=== PATIENT | female | born 1965 | race Caucasian/White ===

== ENCOUNTER → 2019-10-02 12:22 | Outpatient (CLI) | payer BC, SELFPAY ==
--- NOTE | ~2019-10-02 | MM_ITS ---
EXAMINATION: MM screening raheel BI w santiago HISTORY: Screening mammogram TECHNIQUE: Craniocaudal and mediolateral oblique 3-D tomosynthesis images were obtained and synthetic 2-D images were generated. CAD analysis was submitted and interpreted. COMPARISON: 04/04/2018 bilateral digital screening mammogram BREAST PARENCHYMAL COMPOSITION: The breasts are almost entirely fatty. FINDINGS: There is no evidence of suspicious mass, calcification, or architectural distortion to sugg est malignancy in either breast. There has been no suspicious interval change. IMPRESSION: 1. No mammographic evidence of malignancy. 2. Recommend routine screening mammography in one year. BI-RADS Category 1: Negative Reviewed, dictated and finalized at location A. LINE REPAIRER
== END ==
PROVIDERS: PCP Family Medicine; Visit Provider Family Medicine
DX: Z12.31 Encounter for screening mammogram for malignant neoplasm of breast (principal)
CPT/HCPCS: 77063; 77067

== ENCOUNTER 2020-06-05 09:25 | Emergency (ER) | payer BC, SELFPAY ==
[2020-06-05 09:30] VITALS: BP 130/69; PULSE 95; RESP 20; TEMP 36.6; O2SAT 98
--- NOTE | 2020-06-05 09:30 | ED.WOUNDLAC ---
HPI - Wound/Laceration General Chief Complaint: Wound/Laceration Stated Complaint: cut hand Time Seen by Provider: 06/05/20 09:31 Source: patient Mode of arrival: ambulatory Limitations: no limitations History of Present Illness HPI narrative: 54-year-old woman comes in today complaining of laceration on the back of her right hand. Patient states that she was cleaning a slicer when she was cut just prior to arrival. She denies numbness, tingling or decreased range of motion. Her last tetanus shot was about 4 years ago. Onset (ago): minute(s) (30) Extremity Location: Right: hand Place: work Patient tetanus UTD: Yes Context: accidental Associated symptoms: pain Treatments prior to arrival: bandage Related Data Home Medications Medication Instructions Recorded Confirmed aspirin 81 mg tablet,delayed 81 mg PO DAILY 09/18/19 05/21/20 release Allergies Allergy/AdvReac Type Severity Reaction Status Date / Time vancomycin Allergy Unknown Rash Verified 01/21/20 15:28 Review of Systems Review of Systems: All systems reviewed & are unremarkable except as noted in HPI and below Integumentary/Breasts: Skin/Breast: Denies pruritus, Denies erythema and Denies rash Neurologic: Denies vertigo, Denies dizziness, Denies syncope, Denies focal weakness and Denies numbness Hematologic/Lymphatic: Hematologic/Lymphatic: Denies easy bleeding and Denies easy bruising PMFSH Past Medical History Medical History (Updated 06/05/20 @ 10:07 by Luis A Roa MD) Arthritis of knee Cholelithiasis 06/2009 Dyslipidemia Essential (primary) hypertension Family history of factor V deficiency GERD without esophagitis Rectal prolapse Type 2 diabetes mellitus without complications Unspecified osteoarthritis, unspecified site Surgical History Surgical History (Updated 06/05/20 @ 09:41 by Luis A Roa MD) History of arthroplasty of both knees Left total - 02/10/2016 Right total - 12/29/2015 History of cholecystectomy 04/26/2013 Hx of neck surgery Salivary gland removal Hx of tubal ligation Family History Family History (Updated 09/18/19 @ 15:23 by Siena Bonilla) Father Hypertension Family history of gastrointestinal disorder Family history of chronic obstructive pulmonary disease Malignant neoplasm of prostate Family history of diabetes mellitus in first degree relative Mother Hypertension Other Aneurysm Atrial myxoma Cerebrovascular accident Diabetes mellitus Family history of arthritis Family history of gout Family history of heart disease in male family member before age 55 Family history of primary malignant neoplasm of liver Social History Social History Smoking status: Current every day smoker Tobacco type: cigarettes Second hand tobacco smoke exposure: Yes Alcohol intake: current Substance use: never Substance use type: does not use Exam Const: General: alert Nutritional Appearance: obese Orientation/consciousness: patient oriented x3 Limitations: no limitations Other: [id number] acute distress. HENMT: Head: normal to inspection Face and sinus: normal facial exam Eyes: Conjunctivae: conjunctivae normal Pupils: Equal, round and reactive pupils present EOM: EOMs intact bilaterally Skin: General skin exam: normal color, no jaundice and no pallor Rashes: no rashes Other: 2.5 cm flap laceration on the dorsum of the right hand. Neuro: General: patient oriented x3, moves all extremities and no focal motor deficits Speech: normal speech Gait exam (Neuro): Normal gait present Extrem: General: normal to inspection and no clubbing, cyanosis or edema Other: Extensor tendons of the 2nd digit of the right hand are intact to challenge. Distal neurovascular exam intact. Psych: Appearance: grossly normal and well kempt Mental Status: mental status grossly normal Affect: normal affect Attitud
[2020-06-05] MEDS: LIDOCAINE HCL 1% LOCAL INJ 20 ML VIAL 10 ML INFILTRATE (09:44)
[2020-06-05 10:16] VITALS: BP 130/75; PULSE 71; RESP 20; O2SAT 98
== END 2020-06-05 10:17 | disposition home or self-care (01) ==
PROVIDERS: Emergency Provider Emergency Medicine; PCP Family Medicine
DX: S61.411A Laceration without foreign body of right hand, initial encounter (principal); W45.8XXA Other foreign body or object entering through skin, initial encounter
CPT/HCPCS: 12001; 99282

== ENCOUNTER → 2022-02-02 10:05 | Outpatient (CLI) | payer BC, SELFPAY ==
--- NOTE | ~2022-02-02 | MM_ITS ---
EXAMINATION: MM screening raheel BI w santiago HISTORY: Screening mammogram TECHNIQUE: Craniocaudal and mediolateral oblique 3-D tomosynthesis images were obtained and synthetic 2-D images were generated. CAD analysis was submitted and interpreted. COMPARISON: 10/02/2019, 04/04/2018 bilateral screening mammogram examinations BREAST PARENCHYMAL COMPOSITION: The breasts are almost entirely fatty. FINDINGS: There is no evidence of suspicious mass, calcification, or architectural distortion to sugg est malignancy in either breast. There has been no suspicious interval change. IMPRESSION: 1. No mammographic evidence of malignancy. 2. Recommend routine screening mammography in one year. BI-RADS Category 1: Negative Reviewed, dictated and finalized at location A.
--- NOTE | ~2022-02-02 | DEXA_ITS ---
Bone Density Report Name: ALAN GARCIA Age: 56 Sex: Female Ethnicity: White Date of : 1965 Indication: postmenopausal; screening for osteoporosis; height loss; Referring Provider: Fran Finely Study: Bone densitometry was performed. Exam Date: February 02, 2022 Accession number: [id number] Bone Density: Region BMD T-score Z-score Classification AP Spine (L1-L4) 1.113 0.6 1.9 Normal Femoral Neck (Left) 0.799 -0.5 0.8 Normal Total Hip (Left) 0.968 0.2 1.1 Normal Femoral Neck (Right) 0.903 0.5 1.7 Normal Total Hip (Right) 0.894 -0.4 0.5 Normal Total Hip Mean 0.931 -0.1 0.8 Normal World Health Organization criteria for BMD impression classify patients as: Normal (T-score at or above -1.0), Osteopenia (T-score between -1.0 and -2.5), or Osteoporosis (T-score at or below -2.5). 10-year Fracture Risk: FRAX not reported because: All T-scores for Spine Total, Hip Total, Femoral Neck at or above -1.0 Clinical Information Provided by Patient: Smokes Has used the following medications: Vitamin D Patient maximum height was 66 Menopause Age: 38 No regular weight bearing exercise Drinks caffeinated beverages Onset of menses at age 10 Number of children 3 Impression: The patient has normal bone mass. The patient has risk factors, including: smoking. Discussion: BONE DENSITY IS ABOVE THE MINIMUM DESIRABLE LEVEL AT ALL SKELETAL SITES TESTED. This patient?s bone mineral density is above the minimum desirable level (T-score -1.0 or better) at all sites measured. The patient should follow a healthful lifestyle (good nutrition with adequate calcium and vitamin D, and appropriate weight-bearing exercise). Follow-Up: Consider repeating this study in 5 years or sooner if there is some new clinical indication. Reported by: REJI on 02/02/2022 10:33:00 AM. Reviewed, dictated and finalized at location ARicardo GOODWIN
== END ==
PROVIDERS: PCP Family Medicine; Visit Provider Family Medicine
DX: Z12.31 Encounter for screening mammogram for malignant neoplasm of breast (principal); Z78.0 Asymptomatic menopausal state
CPT/HCPCS: 77063; 77067; 77080

== ENCOUNTER 2023-06-07 12:35 | Outpatient (CLI) | payer OTHER, SELFPAY ==
[2023-06-07 19:26] LABS: Creatinine Urine 79.5 mg/dL
[2023-06-07 19:29] LABS: Vitamin D 25 Hydroxy 35.8 ng/mL
[2023-06-07 19:31] LABS: Alanine Aminotransferase 24 U/L (6-35); Albumin Level 4.2 g/dL (3.5-5.1); Alkaline Phosphatase 69 U/L (38-126); Anion Gap 7 mmol/L (8-16); Aspartate Amino Transferase 31 U/L (14-36); Bilirubin,Total 0.5 mg/dL (0.2-1.3); Blood Urea Nitrogen 24 mg/dL (7-17); Carbon Dioxide 30 mmol/L (22-30); Chloride 103 mmol/L (98-107); Cholesterol 163 mg/dL (0-200); Estimated Glomerular Filt Rate 31; Glucose 95 mg/dL (65-110); HDL Direct 35 mg/dL; Potassium 4.6 mmol/L (3.4-5.0); Sodium 140 mmol/L (137-145); Triglycerides 157 mg/dL (<150)
[2023-06-07 19:36] LABS: MALB Creatinine Ratio 7.7 mg/g (0-30); Microalbumin Urine Random 6.1 mg/L (0-16.7)
[2023-06-07 19:42] LABS: Basophils Absolute Auto 0.1 K/mm3 (0.0-0.1); Eosinophils Absolute Auto 0.5 K/mm3 (0-0.3); Eosinophils Percent Auto 4.7 % (0-4.4); Hematocrit 39.9 % (37.0-47.0); Hemoglobin 12.7 g/dL (12.0-15.0); Immature Granulocyte Absolute 0.06 K/mm3 (0.00-0.031); Immature Granulocyte Percent A 0.5 % (0-0.5); Lymphocytes Absolute Auto 3.96 K/mm3 (0.9-3.2); Mean Corpuscular HGB Conc 31.8 g/dl (32-36); Mean Corpuscular Hemoglobin 30.8 pg (26-34); Mean Corpuscular Volume 96.8 fl (80-100); Mean Platelet Volume 10.3 fl (7.4-10.4); Monocytes Absolute Auto 0.7 K/mm3 (0.1-0.6); Monocytes Percent Auto 6.5 % (2.6-8.5); Neutrophils Absolute Auto 5.6 K/mm3 (1.3-6.7); Neutrophils Percent Auto 51.3 % (45.5-73.1); Platelet Count Result 297 k/mm3 (150-375); Red Blood Count 4.12 M/mm3 (4.2-5.4)
[2023-06-07 19:47] LABS: Hemoglobin A1C 6.9 % (<5.7)
[2023-06-07 19:57] LABS: LDL Cholesterol Direct 96 mg/dL
== END 2023-06-07 12:36 | disposition home or self-care (01) ==
LOC: ANHGOSHLAB 12:38
PROVIDERS: PCP Family Medicine; Visit Provider Nurse Practitioner Family
DX: E55.9 Vitamin D deficiency, unspecified (principal); Z13.1 Encounter for screening for diabetes mellitus; I10 Essential (primary) hypertension; Z13.29 Encounter for screening for other suspected endocrine disorder; Z13.220 Encounter for screening for lipoid disorders; E11.9 Type 2 diabetes mellitus without complications; Z00.00 Encounter for general adult medical examination without abnormal findings
CPT/HCPCS: 36415; 80053; 80061; 82043; 82306; 83036; 84443; 85025

== ENCOUNTER 2023-09-10 17:15 | Emergency (ER) | payer OTHER, SELFPAY ==
--- NOTE | ~2023-09-10 | XR_ITS ---
EXAMINATION: XR femur RT min 2V INDICATION: Right femur pain TECHNIQUE: Two views of the right femur are obtained on four radiographs. COMPARISON: None available FINDINGS: Bone alignment is normal. There is no fracture. There are changes of right knee arthroplast y. IMPRESSION: 1. No acute osseous abnormality. Reviewed, dictated and finalized at location F. D BANK ATTENDANT
--- NOTE | ~2023-09-10 | XR_ITS ---
EXAMINATION: XR knee LT min 4V DATE: 09/10/2023 18:46 INDICATION: Left knee pain TECHNIQUE: Four views of the left knee were obtained. COMPARISON: 04/25/2016 FINDINGS: There are changes of left knee arthroplasty. An oblique lucency is seen in the cranial aspe ct of the patella which appears to be well-corticated. There is a small knee joint effusion. Soft ti ssues are unremarkable. IMPRESSION: 1. No definite acute osseous abnormality identified. Oblique lucency in the cranial aspect of the pat jason appears to have corticated margins, likely a chronic finding. In addition, no significant overly ing soft tissue swelling is identified. Reviewed, dictated and finalized at location F. CHOOL ASSISTANT TEACHER IMPRESSION: 1. No definite acute osseous abnormality identified. Oblique lucency in the target aircraft technician nial aspect of the patella appears to have corticated margins, likely a chronic finding. In addition, no significant overlying soft tissue swelling is identif ied.
--- NOTE | ~2023-09-10 | XR_ITS ---
EXAMINATION: XR ankle LT min 3V DATE: 09/10/2023 18:49 INDICATION: Left ankle pain TECHNIQUE: Anteroposterior, lateral, and mortise views of the ankle were obtained. COMPARISON: None. FINDINGS: Bone alignment is normal. There is no fracture. There is soft tissue swelling of ankle. Pos terior and plantar calcaneal enthesophytes are noted. There is mild osteoarthritis of the midfoot. IMPRESSION: 1. No acute osseous abnormality. Reviewed, dictated and finalized at location F. ROOM SUPERVISOR
--- NOTE | ~2023-09-10 | XR_ITS ---
EXAMINATION: XR pelvis 1-2V INDICATION: Pelvic pain TECHNIQUE: AP view the pelvis is obtained. COMPARISON: None available FINDINGS: Bone alignment is normal. There is no fracture. Calcified atherosclerosis is noted. There i s at least moderate lower lumbar spondylosis. IMPRESSION: 1. No acute osseous abnormality. Reviewed, dictated and finalized at location F. ESSOR OF ANTHROPOLOGY
--- NOTE | ~2023-09-10 | XR_ITS ---
EXAMINATION: XR tibia fibula RT 2V INDICATION: Right leg pain, initial encounter TECHNIQUE: Two views of the right tibia and fibula are obtained on four radiographs. COMPARISON: None available FINDINGS: There is an acute, traumatic, closed, oblique fracture of the distal tibia which ends above the level of the tibial plafond. There is one cortical width of lateral displacement of the distal f racture fragment. Soft tissue swelling is seen near the fracture. No additional acute osseous abnorma lity is identified. There are changes of right knee arthroplasty. A plantar calcaneal enthesophyte is noted. IMPRESSION: 1. Acute, oblique fracture of the distal fibula. Reviewed, dictated and finalized at location F. AND GAS FIELD TECHNICIAN
--- NOTE | 2023-09-10 17:17 | ED.FALL ---
HPI - Fall General Chief Complaint: Fall Stated Complaint: fall Time Seen by Provider: 09/10/23 17:16 Source: patient Mode of arrival: ambulatory Limitations: no limitations History of Present Illness HPI Narrative: patient is a 57-year-old female with a fall ground level prior to arrival. She was sitting on the bleachers and bent forward and landed on her knees and twisted both ankles. Most of the pain is of the right distal tib-fib. He has chronic right hip pain. The pain on the right hip is worse however this evening. MD complaint: fall Onset (ago): minute(s) (30) Fall from: chair Fall witnessed: yes, by family Place fall occurred: school ( [employer] ble[employer]) Loss of consciousness: none Prolonged down time: no Symptoms prior to fall: none Context: tripped/slipped Location of injury: other ( both knees and both ankles and right hip) Location of injury - extremities: Right: thigh and lower leg and Bilateral: knee and ankle Severity: severe Severity scale (1-10): 9 Quality: sharp, stabbing, aching and throbbing Associated symptoms (after fall): lightheaded ( due to pain only and not prior to event /fall) and other ( nausea secondary to pain and lightheaded secondary to pain) Related Data Home Medications Medication Instructions Recorded Confirmed aspirin 81 mg tablet,delayed 81 mg PO DAILY 09/18/19 09/10/23 release (Adult Low Dose Aspirin) Allergies Allergy/AdvReac Type Severity Reaction Status Date / Time vancomycin Allergy Unknown Rash Verified 09/10/23 17:25 Review of Systems Review of Systems: All systems reviewed & are unremarkable except as noted in HPI and below Constitutional: Constitutional: Reports no additional constitutional complaints Eyes: Eyes: Reports no additional eye complaints ENT: Reports system reviewed and no additional complaints, except as documented Cardiovascular: Cardiovascular: Reports no additional cardiovascular complaints Respiratory: Respiratory: Reports no additional respiratory complaints Gastrointestinal: Gastrointestinal: Reports no additional gastrointestinal complaints Genitourinary: Genitourinary: Reports no additional female genitourinary complaints Musculoskeletal: Musculoskeletal: Reports no additional musculoskeletal complaints Integumentary/Breasts: Skin/Breast: Reports system reviewed and no additional complaints, except as docu Neurologic: Reports system reviewed and no additional complaints, except as documented Psychiatric: Psychiatric: Reports no additional psychiatric complaints Endocrine: Endocrine: Reports no additional endocrine complaints Hematologic/Lymphatic: Hematologic/Lymphatic: Reports no additional hematologic/lymphatic complaints Allergic/Immunologic: Allergic/Immunologic: Reports no additional allergic/immunologic complaints PMFSH Past Medical History Medical History Anxiety Arthritis of knee Cholelithiasis 06/2009 CKD (chronic kidney disease) stage 3, GFR 30-59 ml/min Dyslipidemia Essential (primary) hypertension GERD without esophagitis Type 2 diabetes mellitus without complications Unspecified osteoarthritis, unspecified site Surgical History Surgical History History of arthroplasty of both knees Left total - 02/10/2016 Right total - 12/29/2015 History of cholecystectomy 04/26/2013 Hx of neck surgery (Unknown) Salivary gland removal Hx of tubal ligation (~1986) Family History Family History Father Hypertension Family history of gastrointestinal disorder Family history of chronic obstructive pulmonary disease Malignant neoplasm of prostate Family history of diabetes mellitus in first degree relative Mother Hypertension Other Aneurysm Atrial myxoma Cerebrovascular accident Diabetes mellitus Family history of arthri
[2023-09-10 17:19] VITALS: BP 113/79; PULSE 97; RESP 20; TEMP 36.6; O2SAT 100
[2023-09-10] MEDS: ONDANSETRON HCL ODT 4 MG TABLET PO (17:51)
[2023-09-10] MEDS: MORPHINE SULFATE (*CRX) 2 MG/ML INJ IM (17:52)
[2023-09-10] MEDS: oxyCODONE/ACETAMINOPHEN (*CRX) 5-325 MG TABLET 1 TABLET PO (19:39)
[2023-09-10] MEDS: KETOROLAC (*BKC) 60 MG/2 ML VIAL IM (20:06)
== END 2023-09-10 20:10 | disposition home or self-care (01) ==
PROVIDERS: Emergency Provider Emergency Medicine; PCP Family Medicine
DX: S82.831A Other fracture of upper and lower end of right fibula, initial encounter for closed fracture (principal); I12.9 Hypertensive chronic kidney disease with stage 1 through stage 4 chronic kidney disease, or unspecified chronic kidney disease; E11.22 Type 2 diabetes mellitus with diabetic chronic kidney disease; N18.30 Chronic kidney disease, stage 3 unspecified; E78.5 Hyperlipidemia, unspecified; Z87.891 Personal history of nicotine dependence; W17.89XA Other fall from one level to another, initial encounter; Y92.219 Unspecified school as the place of occurrence of the external cause
CPT/HCPCS: 29515; 72170; 73552; 73564; 73590; 73610; 96372; 99284; A9270; J1885; J2270

== ENCOUNTER 2023-09-20 01:16 | Day surgery (SDC) | payer OTHER, SELFPAY ==
[2023-09-15 14:34] VITALS: BMI 48.2
--- NOTE | 2023-09-15 14:47 | PC.NURSE ---
Report to the Outpatient Waiting Room, entrance under the green pavilion located off [facility], at time 1300 on date 09/20/23. Planned Procedure Time: 1500. Time changes happen often and if your time is changed the preop area will call you the afternoon before. - You and your visitor will be asked to self-screen and do not enter if you have any COVID symptoms. - A mask is optional within the hospital at this time. Patients may have clear liquids (water, carbonated beverages, clear teas, apple juice) until 3 hours prior to surgery with a maximum of 20 ounces. - No food from midnight until time of surgery Take the following medications with a SIP of water the morning of surgery: BUPROPION, ESCITALOPRAM, GABAPENTIN, PAIN PILL IF NEEDED DO NOT STOP ANY OF YOUR OTHER PRESCRIPTION MEDICATIONS PRIOR TO SURGERY ?EXCEPT THE FOLLOWING Medications to discontinue per physician: ASPIRIN Date to take last dose: PT HAS ALREADY STOPPED Please no make-up, nail belarusian, hairspray, perfume, deodorant, or body powder the day of surgery. No jewelry (including any body piercings) or valuables the day of surgery, leave them at home. Please take a shower or bath the night before, or the morning of, surgery with an antibacterial soap. Wear comfortable, loose fitting clothing. - Jewelry must be removed prior to entering the operating room. Rings and piercings that are not removed may be cut off. - The hospital will not accept responsibility for valuables. - Please leave all valuables, including medications, at home the day of surgery. If you are going home after surgery, a licensed tractor trailer moving van driver must drive you home. - NO public transportation without another adult if you receive anesthesia. - We recommend that an adult stay with you for 24 hours following discharge. - We also recommend that you do not drive, make important decision, drink alcoholic beverages, or take any drugs that were not prescribed by your health care provider for at least 24 hours after your discharge time. Follow any additional instructions given to you from your surgeon. If you or anyone in your household have experienced Covid symptoms in the past week, please notify your surgeon or the nurse liaison at the phone number below for possible testing. Telephone instructions given to PT - ALAN GARCIA and asked if any additional questions and then verbalized understanding. Patient advised to call surgeon office or pre surgery nurse liaison [phone] if any additional questions.
[2023-09-20] VITALS (10 sets, daily range): BP systolic 104–151; BP diastolic 71–99; PULSE 76–89; RESP 11–16; TEMP 36.3–36.5; O2SAT 93–99
--- NOTE | ~2023-09-20 | XR_ITS ---
EXAMINATION: XR surgery orthopedic DATE: 09/20/2023 14:10 INDICATION: Distal right fibula fracture. TECHNIQUE: 6 intraoperative fluoroscopic views of right ankle were obtained. I was not present. Fluor oscopy exposure time was 10 minutes 16 seconds. COMPARISON: Right ankle radiographs 09/15/23 FINDINGS: There is an oblique fracture of distal fibula with medial aspect of the fracture line 6 mm proximal to the level of the tibial plafond. The distal fracture fragment demonstrates 2 mm posterola teral displacement. Internal fixation is seen with retrograde intramedullary linsey and 2 distal interlo cking screws. There is a tension band involving the distal tibia and fibula. IMPRESSION: 1. Oblique fracture of distal fibula status post internal fixation. 2. Tibiofibular syndesmosis fixation. Reviewed, dictated and finalized at location E. LATORY CONSULTANT
--- NOTE | 2023-09-20 07:21 | WPDHPUPDATE1 ---
History and Physical Update Update Date/Time: 09/20/23 07:21 History and Physical has been reviewed, including an updated exam of the patient. There are NO changes in the patient's condition. Risks, benefits, and alternatives have been discussed and questions answered. Patient agrees to proceed with procedure.
--- NOTE | 2023-09-20 07:54 | WPDANESEPPF ---
Anes - Initial Pre Proc Eval Procedure: Operation Date: 09/20/23 13:30 Proposed Procedures p Open Reduction Internal Fixation of Right Ankle (Fibula) Fracture - Alex Bell MD Date/Time: 09/20/23 07:54 Surgeon: Alex Bell MD Pre Op Diagnosis: right distal fibula fracture Patient Data Age: 57 Gender: F Height: 1.65 m Weight: 131.6 kg Allergies Allergy/AdvReac Type Severity Reaction Status Date / Time vancomycin Allergy Severe Rash Verified 09/20/23 11:29 Home Medications Medication Instructions Recorded Confirmed Type aspirin 81 mg tablet,delayed 81 mg PO DAILY 09/18/19 09/20/23 History release (Adult Low Dose Aspirin) esomeprazole magnesium 20 mg 20 mg PO DAILY #90 caps 11/01/21 09/20/23 Rx capsule,delayed release (Nexium 24HR) glipizide 10 mg tablet, extended 10 mg PO DAILY #90 tabs 06/02/23 09/20/23 Rx release 24 hr lisinopril 20 1 tablet PO BID #180 tabs 06/06/23 09/20/23 Rx mg-hydrochlorothiazide 12.5 mg tablet escitalopram oxalate 10 mg tablet 10 mg PO DAILY #90 tabs 07/26/23 09/20/23 Rx (Lexapro) gabapentin 300 mg capsule 300 mg PO TID #270 caps 09/01/23 09/20/23 Rx atorvastatin 10 mg tablet 10 mg PO QHS #90 tabs 09/05/23 09/20/23 Rx dulaglutide 0.75 mg/0.5 mL 0.75 mg (0.5 mL) subcut WEEKLY #2 09/11/23 09/20/23 Rx subcutaneous pen injector mL (Trulicity) bupropion HCl 150 mg tablet,12 hr 150 mg PO BID #180 tabs 09/12/23 09/20/23 Rx sustained-release (Wellbutrin SR) hydrocodone 5 mg-acetaminophen 325 1 tablet PO Q8H PRN pain #30 tabs 09/15/23 09/20/23 Rx mg tablet Patient hx anesthesia problems: none Family hx anesthesia problems: none Results Review: All pre-operative results and documents have been reviewed as part of the pre-operative evaluation. [facility] Past Medical History Medical History Anxiety Arthritis of knee Cholelithiasis 06/2009 CKD (chronic kidney disease) stage 3, GFR 30-59 ml/min Dyslipidemia Essential (primary) hypertension GERD without esophagitis Type 2 diabetes mellitus without complications Unspecified osteoarthritis, unspecified site Surgical History Surgical History History of arthroplasty of both knees Left total - 02/10/2016 Right total - 12/29/2015 History of cholecystectomy 04/26/2013 Hx of neck surgery (Unknown) Salivary gland removal Hx of tubal ligation (~1986) Family History Family History Father Hypertension Family history of gastrointestinal disorder Family history of chronic obstructive pulmonary disease Malignant neoplasm of prostate Family history of diabetes mellitus in first degree relative Mother Hypertension Other Aneurysm Atrial myxoma Cerebrovascular accident Diabetes mellitus Family history of arthritis Family history of gout Family history of heart disease in male family member before age 55 Family history of primary malignant neoplasm of liver Social History Social History Social History: Caffeine- daily Smoking packs per day: 0.5 Smoking cigarettes per day: 10.0 Years smoked: 20 Smoking pack-years: 10.00 Smoking status: Former smoker Tobacco type: cigarettes Second hand tobacco smoke exposure: Yes Smoking end date: 07/26/22 Alcohol intake: never Substance use: never Substance use type: does not use Lack of Transportation: No Lack of Food: Never True Current Housing: I Have Housing Concerned About Future Housing: No Difficulty Paying Gas/Electric Bills: No Difficulty Paying for Meds: No Currently Unemployed: No Education: Trade/Vocational Certificate Difficulty w/ Childcare or Family Care: No Living arrangements: with family Occupation/Education: occupation Additional occupation
--- NOTE | 2023-09-20 11:33 | ECG_ITS ---
Measurements Intervals [place] Rate: 69 P: 10 [place]: 157 QRS: 5 QRSD: 89 T: 19 QT: 388 QTc: 416 Interpretive Statements SINUS RHYTHM NORMAL ECG NO PREVIOUS ECG AVAILABLE FOR COMPARISON Electronically Signed On 09-20-2023 12:06:23 MEDICAL TRANSLATOR by Henri Domínguez D.O.
[2023-09-20] MEDS: LACTATED RINGERS 1,000 ML 30 ML IV CONT ×2 (11:40→14:19)
[2023-09-20] MEDS: ACETAMINOPHEN 500 MG TABLET 1000 MG PO (11:42)
[2023-09-20] MEDS: CELECOXIB 200 MG CAPSULE PO (11:42)
[2023-09-20 11:59] LABS: Prothrombin Time 13.3 Seconds (11.1-14.7)
[2023-09-20 12:13] LABS: Anion Gap 8 mmol/L (8-16); Blood Urea Nitrogen 27 mg/dL (7-17); Calcium 9.4 mg/dL (8.4-10.2); Carbon Dioxide 27 mmol/L (22-30); Chloride 102 mmol/L (98-107); Estimated CRCL calculation 54 ml/min; Estimated Glomerular Filt Rate 38; Glucose 197 mg/dL (65-110); Potassium 4.3 mmol/L (3.4-5.0); Sodium 137 mmol/L (137-145)
[2023-09-20] MEDS: ceFAZolin 3 GM/D5W 100 ML 100 ML IVPB (12:47)
[2023-09-20] MEDS: BUPivacaine HCL 0.5% 10 ML AMP 20 ML INFILTRATE (13:38)
--- NOTE | 2023-09-20 14:27 | W.PM.PROC2 ---
Procedure Note - Detailed Date of Procedure 09/20/23 Pre-op Diagnosis right distal fibula fracture Post-op Diagnosis Same Procedure Performed ORIF RIGHT ANKLE FRACTURE WITH FIBULAR MILLY AND SYNDESMOTIC TIGHTROPE FIXATION. Surgeon Alex Bell MD Anesthesia General Description of Procedure THE PATIENT WAS TAKEN TO THE OR. THE RIGHT LEG WAS PREPPED AND DRAPED IN THE NORMAL FASHION. AN INCISION WAS MADE AT THE DISTAL FIBULA TIP. A GUIDE PIN WAS INSERTED USING FLUOROSCOPY AND BRIDGING THE FRACTURE FRAGMENTS. A REAMER WAS USED TO REAM THE PROXIMAL AND DISTAL FRACTURE FRAGMENTS. A 3.8 X 180 MM ARTHREX FIBULAR MILLY WAS INSERTED AND LOCKED BOTH PROXIMALLY AND THEN DISTALLY WITH 2 INTERLOCKING SCREWS. NEXT 1 TIGHTROPE IMPLANT WAS INSERTED THROUGH THE MILLY AND OUT THE MEDIAL CORTEX OF THE TIBIA. THE COMPONENT WAS TIGHTENED WITH THE ANKLE IN NEUTRAL FLEXION. C ARM WAS USED TO IMAGE THE ANKLE AND IT WAS FOUND THAT HARDWARE WAS IN GOOD POSITION AND THE SYNDESMOSIS AND FIBULA FRACTURE WAS REDUCED WELL. NEXT THE WOUNDS WERE WASHED 2-0 AND 3-0 SUTURES WERE USED TO APPROXIMATE THE WOUNDS. NATALIE WERE USED TO CLOSE THE SKIN. WOUNDS WERE WASHED THEN PLACED IN A STERILE DRESSING, THEN A FRACTURE BOOT WAS APPLIED. PATIENT WAS EXTUBATED AND SENT TO RECOVERY ROOM IN STABLE CONDITION. Estimated Blood Loss 20 Complications No immediate complications Condition Stable Disposition PACU
[2023-09-20] MEDS: fentaNYL CITRATE INJ (*CRX) 100 MCG/2 ML VIAL 25 MCG IV PUSH ×4 (14:29→14:43)
[2023-09-20 14:43] LABS: Glucose Point of Care 183 mg/dl (65-105)
[2023-09-20] MEDS: KETOROLAC 30 MG/ML VIAL (*BKC) IV PUSH (14:52)
[2023-09-20] MEDS: oxyCODONE HCL (*CRX) 5 MG TAB IR PO (16:03)
== END 2023-09-20 16:45 | disposition home or self-care (01) ==
PROVIDERS: PCP Family Medicine; Visit Provider Orthopaedic Surgery
PROC: (CPT 27792; principal; 2023-09-20 13:30)
DX: S82.61XA Displaced fracture of lateral malleolus of right fibula, initial encounter for closed fracture (principal); W19.XXXA Unspecified fall, initial encounter; N18.30 Chronic kidney disease, stage 3 unspecified; E78.5 Hyperlipidemia, unspecified; I12.9 Hypertensive chronic kidney disease with stage 1 through stage 4 chronic kidney disease, or unspecified chronic kidney disease; E11.22 Type 2 diabetes mellitus with diabetic chronic kidney disease; Z87.891 Personal history of nicotine dependence
CPT/HCPCS: 27792; 36415; 80048; 82948; 85610; 85730; 93005; 99199; A9270; C1713; J0690; J1100; J1170; J1885; J2405; J2704; J3010; J7120

== ENCOUNTER 2024-04-24 08:00 | Outpatient (CLI) | payer OTHER, SELFPAY ==
[2024-04-24 13:16] LABS: Basophils Absolute Auto 0.1 K/mm3 (0.0-0.1); Basophils Percent Auto 0.9 % (0.2-1.2); Eosinophils Absolute Auto 0.3 K/mm3 (0-0.3); Eosinophils Percent Auto 3.3 % (0-4.4); Hematocrit 40.5 % (37.0-47.0); Hemoglobin 13.1 g/dL (12.0-15.0); Immature Granulocyte Absolute 0.09 K/mm3 (0.00-0.031); Immature Granulocyte Percent A 0.9 % (0-0.5); Lymphocytes Absolute Auto 3.05 K/mm3 (0.9-3.2); Mean Corpuscular HGB Conc 32.3 g/dl (32-36); Mean Corpuscular Hemoglobin 32.1 pg (26-34); Mean Corpuscular Volume 99.3 fl (80-100); Mean Platelet Volume 10.4 fl (7.4-10.4); Monocytes Absolute Auto 0.8 K/mm3 (0.1-0.6); Monocytes Percent Auto 7.9 % (2.6-8.5); Neutrophils Absolute Auto 5.5 K/mm3 (1.3-6.7); Platelet Count Result 282 k/mm3 (150-375); Red Blood Count 4.08 M/mm3 (4.2-5.4); Red Cell Distribution Width 14.1 % (11.5-14.5); White Blood Count 9.8 K/mm3 (4.5-10.0)
[2024-04-24 13:39] LABS: Hemoglobin A1C 11.9 % (<5.7)
[2024-04-24 13:44] LABS: MALB Creatinine Ratio 7.1 mg/g (0-30)
[2024-04-24 14:25] LABS: Alanine Aminotransferase 27 U/L (6-35); Alkaline Phosphatase 101 U/L (38-126); Anion Gap 10 mmol/L (4-12); Aspartate Amino Transferase 37 U/L (14-36); Bilirubin,Total 0.5 mg/dL (0.2-1.3); Blood Urea Nitrogen 37 mg/dL (7-17); Calcium 9.5 mg/dL (8.4-10.2); Carbon Dioxide 29 mmol/L (22-30); Chloride 95 mmol/L (98-107); Cholesterol 210 mg/dL (0-200); Estimated Glomerular Filt Rate 27; Glucose 341 mg/dL (65-110); HDL Direct 32 mg/dL; Potassium 4.7 mmol/L (3.4-5.0); Sodium 134 mmol/L (137-145); Triglycerides 310 mg/dL (<150)
[2024-04-24 14:32] LABS: Vitamin D 25 Hydroxy 17.3 ng/mL
[2024-04-24 14:36] LABS: LDL Cholesterol Direct 118 mg/dL
== END 2024-04-24 08:01 | disposition home or self-care (01) ==
LOC: ANHGOSHLAB 08:01
PROVIDERS: PCP Family Medicine; Visit Provider Nurse Practitioner Family
DX: Z00.00 Encounter for general adult medical examination without abnormal findings (principal); Z13.29 Encounter for screening for other suspected endocrine disorder; I10 Essential (primary) hypertension; E11.9 Type 2 diabetes mellitus without complications; Z13.220 Encounter for screening for lipoid disorders; E55.9 Vitamin D deficiency, unspecified; Z13.1 Encounter for screening for diabetes mellitus
CPT/HCPCS: 36415; 80053; 80061; 82043; 82306; 83036; 84443; 85025

== ENCOUNTER 2024-06-14 02:25 | Day surgery (SDC) | payer OTHER, SELFPAY ==
[2024-05-28 11:11] VITALS: BMI 48.7
[2024-06-14 06:22] VITALS: BP 150/88; PULSE 80; RESP 20; TEMP 36.6; O2SAT 96; BMI 47.6
[2024-06-14] MEDS: LACTATED RINGERS 1,000 ML 150 ML IV CONT (06:38)
[2024-06-14 06:39] LABS: Glucose Point of Care 153 mg/dl (65-105)
--- NOTE | 2024-06-14 07:27 | PM.HPGS ---
History of Present Illness History of Present Illness Consent: Risks, benefits, and alternatives have been discussed and questions answered. Patient agrees to proceed with procedure. Chief complaint: Dysphagia Narrative: Nohelia Hardy is a 58 year old female here with dysphagia at throat level, she is using nexium, no recent EGD. Review of Systems Review of Systems: All systems reviewed & are unremarkable except as noted in HPI and below PMFSH Past Medical History Medical History Anxiety Arthritis of knee Cholelithiasis 06/2009 CKD (chronic kidney disease) stage 4, GFR 15-29 ml/min Dyslipidemia Essential (primary) hypertension GERD without esophagitis OAB (overactive bladder) Type 2 diabetes mellitus with stage 4 chronic kidney disease GFR 15-29 Type 2 diabetes mellitus without complications Unspecified osteoarthritis, unspecified site Surgical History Surgical History History of arthroplasty of both knees Left total - 02/10/2016 Right total - 12/29/2015 History of cholecystectomy 04/26/2013 Hx of neck surgery (Unknown) Salivary gland removal Hx of tubal ligation (~1986) Family History Family History Father Hypertension Family history of gastrointestinal disorder Family history of chronic obstructive pulmonary disease Malignant neoplasm of prostate Family history of diabetes mellitus in first degree relative Mother Hypertension Other Aneurysm Atrial myxoma Cerebrovascular accident Diabetes mellitus Family history of arthritis Family history of gout Family history of heart disease in male family member before age 55 Family history of primary malignant neoplasm of liver Social History Social History Social History: Caffeine- daily Smoking packs per day: 1 Smoking cigarettes per day: 20.0 Years smoked: 20 Smoking pack-years: 20.00 Smoking status: Former smoker Tobacco type: cigarettes Second hand tobacco smoke exposure: Yes Smoking end date: 07/26/22 Additional smoking assessment comments: vapes occassionally Alcohol intake: never Substance use: never Substance use type: does not use Do You Feel Safe in your Home?: Yes Lack of Transportation: No Lack of Food: Never True Current Housing: I Have Housing Concerned About Future Housing: No Difficulty Paying Gas/Electric Bills: No Difficulty Paying for Meds: No Currently Unemployed: No Education: Trade/Vocational Certificate Difficulty w/ Childcare or Family Care: No Living arrangements: with family Occupation/Education: occupation 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- [employer] Spiritual care concerns: No Meds Home Medications and Allergies Home Medications Medication Instructions Recorded Confirmed Type aspirin 81 mg tablet,delayed 81 mg PO DAILY 09/18/19 06/14/24 History release (Adult Low Dose Aspirin) esomeprazole magnesium 20 mg 20 mg PO DAILY #90 caps 11/01/21 06/14/24 Rx capsule,delayed release (Nexium 24HR) atorvastatin 10 mg tablet 10 mg PO QHS #90 tabs 09/05/23 06/14/24 Rx bupropion HCl 150 mg tablet,12 hr 150 mg PO BID #180 tabs 03/11/24 06/14/24 Rx sustained-release (Wellbutrin SR) Continuous glucose monitor #1 ea 05/03/24 06/14/24 Rx dulaglutide 1.5 mg/0.5 mL 1.5 mg (0.5 mL) subcut WEEKLY #2 mL 05/03/24 06/14/24 Rx subcutaneous pen injector (Trulicity) lisinopril 20 mg tablet 20 mg PO .evening #90 tabs 05/03/24 06/14/24 Rx lisinopril 20 1 tablet PO .every morning #90 tabs 05/03/24 06/14/24 Rx mg-hydrochlorothiazide 12.5 mg tablet escitalopram oxalate 10 mg tablet 10 mg PO DAILY #30 tabs 05/27/24 06/14/24 Rx (Lexapro) cholecalciferol (vitamin D3) 125 125 mcg PO DAILY 05/28/24 06/14/24 History
--- NOTE | 2024-06-14 07:27 | WPDANESEPPF ---
Anes - Initial Pre Proc Eval Procedure: Operation Date: 06/14/24 07:30 Proposed Procedures p Esophagogastroduodenoscopy - Rickey Bonilla MD Date/Time: 06/14/24 07:27 Surgeon: Rickey Bonilla MD Pre Op Diagnosis: Dysphagia Patient Data Age: 58 Gender: F Height: 1.65 m Weight: 129.8 kg Last Vital Signs Temp 97.8 F 06/14/24 06:22 Pulse 80 06/14/24 06:22 Resp 20 06/14/24 06:22 BP 150/88 H 06/14/24 06:22 Pulse Ox 96 06/14/24 06:22 O2 Del Method Room Air 06/14/24 06:22 Allergies Allergy/AdvReac Type Severity Reaction Status Date / Time vancomycin Allergy Severe Rash, Verified 06/14/24 06:19 DIFFICULTY BREATHING,SWELLING Home Medications Medication Instructions Recorded Confirmed Type aspirin 81 mg tablet,delayed 81 mg PO DAILY 09/18/19 06/14/24 History release (Adult Low Dose Aspirin) esomeprazole magnesium 20 mg 20 mg PO DAILY #90 caps 11/01/21 06/14/24 Rx capsule,delayed release (Nexium 24HR) atorvastatin 10 mg tablet 10 mg PO QHS #90 tabs 09/05/23 06/14/24 Rx bupropion HCl 150 mg tablet,12 hr 150 mg PO BID #180 tabs 03/11/24 06/14/24 Rx sustained-release (Wellbutrin SR) Continuous glucose monitor #1 ea 05/03/24 06/14/24 Rx dulaglutide 1.5 mg/0.5 mL 1.5 mg (0.5 mL) subcut WEEKLY #2 mL 05/03/24 06/14/24 Rx subcutaneous pen injector (Trulicity) lisinopril 20 mg tablet 20 mg PO .evening #90 tabs 05/03/24 06/14/24 Rx lisinopril 20 1 tablet PO .every morning #90 tabs 05/03/24 06/14/24 Rx mg-hydrochlorothiazide 12.5 mg tablet escitalopram oxalate 10 mg tablet 10 mg PO DAILY #30 tabs 05/27/24 06/14/24 Rx (Lexapro) cholecalciferol (vitamin D3) 125 125 mcg PO DAILY 05/28/24 06/14/24 History mcg (5,000 unit) tablet (Vitamin D3) metformin 500 mg tablet,extended 1,000 mg PO DAILY 05/28/24 06/14/24 History release 24 hr tolterodine 2 mg capsule,extended 2 mg PO HS 05/28/24 06/14/24 History release 24 hr (Detrol LA) gabapentin 300 mg capsule 300 mg PO TID #270 caps 06/03/24 06/14/24 Rx glipizide 10 mg tablet, extended 10 mg PO DAILY #90 tabs 06/11/24 06/14/24 Rx release 24 hr Laboratory Tests 06/14/24 06:37 POC Capillary Glucose 153 H mg/dl (65-105) Patient hx anesthesia problems: none Family hx anesthesia problems: none Results Review: All pre-operative results and documents have been reviewed as part of the pre-operative evaluation. [facility] Past Medical History Medical History Anxiety Arthritis of knee Cholelithiasis 06/2009 CKD (chronic kidney disease) stage 4, GFR 15-29 ml/min Dyslipidemia Essential (primary) hypertension GERD without esophagitis OAB (overactive bladder) Type 2 diabetes mellitus with stage 4 chronic kidney disease GFR 15-29 Type 2 diabetes mellitus without complications Unspecified osteoarthritis, unspecified site Surgical History Surgical History History of arthroplasty of both knees Left total - 02/10/2016 Right total - 12/29/2015 History of cholecystectomy 04/26/2013 Hx of neck surgery (Unknown) Salivary gland removal Hx of tubal ligation (~1986) Family History Family History Father Hypertension Family history of gastrointestinal disorder Family history of chronic obstructive pulmonary disease Malignant neoplasm of prostate Family history of diabetes mellitus in first degree relative Mother Hypertension Other Aneurysm Atrial myxoma Cerebrovascular accident Diabetes mellitus Family history of arthritis Family history of gout Family history of heart disease in male family member before age 55 Family history of primary malignant neoplasm of liver Social History Social History Social History: Caffeine- daily
[2024-06-14 07:47] VITALS: BP 118/69; PULSE 74; RESP 12; O2SAT 100
[2024-06-14 07:57] VITALS: BP 128/75; PULSE 81; RESP 17; O2SAT 100
[2024-06-14 08:01] VITALS: BP 124/88; PULSE 79; RESP 19; O2SAT 100
== END 2024-06-14 08:13 | disposition home or self-care (01) ==
PROVIDERS: PCP Family Medicine; Referring Provider Nurse Practitioner Family; Visit Provider Internal Medicine Gastroenterology
PROC: 0DJ08ZZ Inspection of Upper Intestinal Tract, Via Natural or Artificial Opening Endoscopic (ICD-10-PCS; CPT 43235; principal; 2024-06-14 07:30)
DX: K29.50 Unspecified chronic gastritis without bleeding (principal); K21.9 Gastro-esophageal reflux disease without esophagitis; I12.9 Hypertensive chronic kidney disease with stage 1 through stage 4 chronic kidney disease, or unspecified chronic kidney disease; E11.22 Type 2 diabetes mellitus with diabetic chronic kidney disease; N18.4 Chronic kidney disease, stage 4 (severe); E78.5 Hyperlipidemia, unspecified; F41.9 Anxiety disorder, unspecified; N32.81 Overactive bladder; Z79.82 Long term (current) use of aspirin; Z79.85 Long-term (current) use of injectable non-insulin antidiabetic drugs; Z79.84 Long term (current) use of oral hypoglycemic drugs; Z87.891 Personal history of nicotine dependence; E66.01 Morbid (severe) obesity due to excess calories; Z68.42 Body mass index [BMI] 45.0-49.9, adult
CPT/HCPCS: 43239; 43450; 82948; 88305; J2003; J2704; J7120

== ENCOUNTER 2024-06-24 10:27 | Outpatient (CLI) | payer OTHER, SELFPAY ==
--- NOTE | ~2024-06-24 | US_ITS ---
Renal-Bladder ultrasound Clinical History: Chronic kidney disease Technique: Real-time sonographic imaging of the kidneys and urinary bladder was performed. Findings: The right kidney measures 11.2 cm in length and the left kidney measures 8.3 cm. There is n o hydronephrosis or renal calculus identified. Renal cortical echogenicity is within normal limits. N o renal mass lesion is identified. The urinary bladder is moderately distended at the time of this exam. No intraluminal echoes are iden tified. No abnormal wall thickening is seen. Impression: Relative asymmetric atrophy left kidney, otherwise unremarkable exam. Reviewed, dictated and finalized at location M. Impression: Relative asymmetric atrophy left kidney, otherwise unremarkable exam.
[2024-06-24 11:18] LABS: Hematocrit 38.6 % (35.0-49.0); Hemoglobin 12.6 g/dL (12.0-15.0); Mean Corpuscular HGB Conc 32.6 g/dL (32-36); Mean Corpuscular Hemoglobin 30.7 pg (27.0-31.0); Mean Corpuscular Volume 93.9 fL (78.0-102.0); Mean Platelet Volume 9.8 fl (9.2-11.8); Platelet Count Result 293 K/mm3 (150-420); Red Blood Count 4.11 M/mm3 (4.20-5.40); Red Cell Distribution Width 12.8 % (11.6-14.4); White Blood Count 9.3 K/mm3 (4.8-10.8)
[2024-06-24 11:53] LABS: Albumin Level 3.3 g/dL (3.4-5.0); Anion Gap 11 mmol/L (4-12); Blood Urea Nitrogen 22 mg/dL (7-18); Carbon Dioxide 25 mmol/L (21-32); Chloride 103 mmol/L (98-108); Creatine Kinase 152 U/L (26-192); Estimated Glomerular Filt Rate 30; Glucose 137 mg/dL (70-99); Osmolality Calculated 293 mOsm/kg (285-295); Phosphorus 3.5 mg/dL (2.6-4.7); Potassium 4.4 mmol/L (3.5-5.1); Sodium 139 mmol/L (136-145)
[2024-06-24 11:59] LABS: Add Urine Microscopic? NO; Appearance Urine Clear (Clear); Bilirubin Urine Negative (Negative); Blood Urine Negative (Negative); Color Urine Light Yellow (Yellow); Glucose Urine UA Negative (Negative); Ketones Urine Negative (Negative); Leukocyte Esterase Ur Negative (Negative); Nitrate Urine Negative (Negative); Protein Urine Negative (Negative); Urobilinogen Urine 0.2 mg/dL (0.2-1.0); pH Urine 5.5 (5.0-8.0)
[2024-06-24 12:05] LABS: Creatinine Urine 121.78 mg/dL (40-278); Total Protein Urine Random 17.1 mg/dL (0.0-11.9); Ur Ttl Prot Creatinine Ratio 0.14 mg/mg (0-0.20)
[2024-06-24 12:38] LABS: Erythrocyte Sedimentation Rate 41 mm/hr (0-20)
[2024-06-25 14:53] LABS: Parathyroid Intact 90 pg/mL (16-77)
[2024-06-26 05:04] LABS: Complement C3 178 mg/dL (83-193)
[2024-06-26 13:33] LABS: Complement Total CH50 >60 U/mL (31-60)
[2024-06-26 15:38] LABS: Kappa\\Lambda Light Chains 1.11 (0.26-1.65); Lambda Light Chain 26.4 mg/L (5.7-26.3)
[2024-06-27 23:12] LABS: Immunofixation, Serum Normal pattern.
== END 2024-06-24 10:28 | disposition home or self-care (01) ==
LOC: CHSIMG 10:28
PROVIDERS: PCP Family Medicine; Visit Provider Internal Medicine Nephrology
DX: N18.32 Chronic kidney disease, stage 3b (principal); N26.1 Atrophy of kidney (terminal)
CPT/HCPCS: 36415; 76775; 80069; 81003; 82550; 82570; 83883; 83970; 84156; 85027; 85652; 86038; 86039; 86160; 86162; 86334

== ENCOUNTER 2024-08-16 13:55 | Outpatient (CLI) | payer OTHER, SELFPAY ==
--- NOTE | ~2024-08-16 | MM_ITS ---
EXAMINATION: MM screening raheel BI w santiago HISTORY: Screening TECHNIQUE: Craniocaudal and mediolateral oblique 3-D tomosynthesis images were obtained and synthetic 2-D images were generated. CAD analysis was submitted and interpreted. COMPARISON: Comparison to multiple prior studies sequentially, with oldest reviewed study dated 09/2017. BREAST PARENCHYMAL COMPOSITION: Not Dense: The breasts are almost entirely fatty. FINDINGS: There is no evidence of suspicious mass, calcification, or architectural distortion to sugg est malignancy in either breast. There has been no suspicious interval change. IMPRESSION: 1. No mammographic evidence of malignancy. 2. Recommend routine screening mammography in one year. BI-RADS Category 1: Negative Reviewed, dictated and finalized at location B. LIBRARIAN
[2024-08-16 14:18] LABS: Total Volume 24 Hour Urine 2000 ml; Urea Nitrogen 24 Hour Urine 14.4 g/Day (7-20)
== END 2024-08-16 13:56 | disposition home or self-care (01) ==
LOC: CHSIMG 13:58
PROVIDERS: Internal Medicine Nephrology; PCP Family Medicine; Visit Provider Nurse Practitioner Family
DX: N18.32 Chronic kidney disease, stage 3b (principal); Z12.31 Encounter for screening mammogram for malignant neoplasm of breast
CPT/HCPCS: 77063; 77067; 81050; 84540; 86335

== ENCOUNTER 2024-10-14 10:08 | Emergency (ER) | payer OTHER, SELFPAY ==
[2024-10-14] VITALS (56 sets, daily range): BP systolic 104–186; BP diastolic 54–108; PULSE 63–90; RESP 11–26; TEMP 36.6; O2SAT 92–100
--- NOTE | ~2024-10-14 | CT_ITS ---
EXAMINATION: CTA chest PE protocol DATE: 10/14/2024 11:37 INDICATION: Shortness of breath. Left chest pain. TECHNIQUE: Computed tomography angiography (CTA) of the chest was performed with 100 mL Omnipaque-350 intravenous contrast timed to evaluate the pulmonary arteries. Coronal maximum intensity projection 3D-reconstructions were created by the technologist. Automated exposure control and iterative reconst ruction technique were employed. The dose-length product was 987.50 mGy-cm. COMPARISON: Chest single view 10/14/2024 FINDINGS: There is mild scarring in paraspinal right lower lobe. There is mild atelectasis bilaterall y. No pleural effusion. The heart size is normal. There are coronary artery calcifications. There are calcifications of the aortic valve. No pericardial effusion. There is mild right paratracheal lympha denopathy, likely reactive. There is no pulmonary embolus. There is moderate thoracic spondylosis. Th ere is mild chronic anterior wedging of T6 vertebral body. IMPRESSION: 1. No pulmonary embolus. Reviewed, dictated and finalized at location A. T COMPUTER IMPRESSION: 1. No pulmonary embolus.
--- NOTE | ~2024-10-14 | XR_ITS ---
EXAMINATION: XR chest 1V portable DATE: 10/14/2024 10:34 INDICATION: Left chest pain TECHNIQUE: frontal view of the chest was obtained. COMPARISON: None FINDINGS: The lungs are clear with no focal airspace opacities, pulmonary edema, pleural effusion or pneumothor ax. The cardiomediastinal silhouette is normal. Mild thoracic dextrocurvature. IMPRESSION: 1. No acute cardiopulmonary disease. Reviewed, dictated and finalized at location A. NEERING MODEL MAKER
--- NOTE | 2024-10-14 10:12 | ECG_ITS ---
Test Date: 2024-10-14 10:16:18 Measurements Intervals [place] Rate: 80 P: 25 SD: 148 QRS: 27 QRSD: 85 T: 37 QT: 375 QTc: 434 Interpretive Statements SINUS RHYTHM BASELINE ARTIFACT- II, III, AVR, AVL, AVF, V4-V6 NORMAL ECG No previous ECG available for comparison Electronically Signed On 10-14-2024 10:19:07 METALLURGICAL TESTER by Henri Domínguez D.O.
--- NOTE | 2024-10-14 10:22 | ED.CHESTPAIN ---
HPI - Chest Pain General Chief Complaint: Chest Pain Stated Complaint: SOB, Chest pain Time Seen by Provider: 10/14/24 10:12 Source: patient Mode of arrival: ambulatory Limitations: no limitations History of Present Illness HPI narrative: 59 years old white female came to the ED by private car complaining of left chest pain under left breast started 2 days ago, intermittent, like tightness, get worse sometime when she lay down on it, denies relieving factors, currently having no pain. Patient denies any recent new physical activities or trauma. History of diabetes hypertension hyperlipidemia cholecystectomy appendectomy currently on aspirin once a day. She does not smoke or drink or use drugs, her mom had history of heart attack at age 79 Related Data Home Medications ?Medication ?Instructions ?Recorded ?Confirmed ?Last Taken ?Type aspirin 81 mg tablet,delayed 81 mg PO DAILY 09/18/19 06/26/24 06/13/24 History release (Adult Low Dose Aspirin) cholecalciferol (vitamin D3) 125 125 mcg PO DAILY 05/28/24 06/26/24 06/13/24 History mcg (5,000 unit) tablet (Vitamin D3) metformin 500 mg tablet,extended 1,000 mg PO DAILY 05/28/24 06/26/24 06/13/24 History release 24 hr tolterodine 2 mg capsule,extended 2 mg PO HS 05/28/24 06/26/24 06/13/24 History release 24 hr (Detrol LA) Allergies Allergy/AdvReac Type Severity Reaction Status Date / Time vancomycin Allergy Severe Rash, Verified 10/14/24 10:23 DIFFICULTY BREATHING,SWELLING Review of Systems Review of Systems: All systems reviewed & are unremarkable except as noted in HPI and below PMFSH Past Medical History Medical History OAB (overactive bladder) Type 2 diabetes mellitus with stage 4 chronic kidney disease GFR 15-29 CKD (chronic kidney disease) stage 4, GFR 15-29 ml/min Anxiety Type 2 diabetes mellitus without complications Arthritis of knee Cholelithiasis 06/2009 GERD without esophagitis Dyslipidemia Unspecified osteoarthritis, unspecified site Essential (primary) hypertension Surgical History Surgical History Hx of neck surgery (Unknown) Salivary gland removal Hx of tubal ligation (~1986) History of arthroplasty of both knees Left total - 02/10/2016 Right total - 12/29/2015 History of cholecystectomy 04/26/2013 Family History Family History Father Hypertension Family history of gastrointestinal disorder Family history of chronic obstructive pulmonary disease Malignant neoplasm of prostate Family history of diabetes mellitus in first degree relative Mother Hypertension Other Aneurysm Atrial myxoma Cerebrovascular accident Diabetes mellitus Family history of arthritis Family history of gout Family history of heart disease in male family member before age 55 Family history of primary malignant neoplasm of liver Social History Social History Social History: Caffeine- daily Smoking packs per day: 1 Smoking cigarettes per day: 20.0 Years smoked: 20 Smoking pack-years: 20.00 Smoking status: Former smoker Tobacco type: cigarettes Second hand tobacco smoke exposure: Yes Smoking end date: 07/26/22 Additional smoking assessment comments: vapes occassionally Alcohol intake: never Substance use: never Substance use type: does not use Do You Feel Safe in your Home?: Yes Lack of Transportation: No Lack of Food: Never True Current Housing: I Have Housing Concerned About Future Housing: No Difficulty Paying Gas/Electric Bills: No Difficulty Paying for Meds: No Currently Unemployed: No Education: Trade/Vocational Certificate Difficulty w/ Childcare or Family Care: No Living arrangements: with family Occupation/Education: occupation 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 Musculoskeletal: Normal range of motion, nontender back Neurologic: Alert and oriented ?3, TEST BORER is normal as tested, no gross motor deficit Course Vital Signs Vital signs: Vital Signs Oxygen Delivery Room Air 10/14/24 10:08 Temperature 36.6 C 10/14/24 19:45 Pulse Rate 74 10/14/24 19:45 Respiratory Rate 18 10/14/24 19:45 Blood Pressure 104/65 10/14/24 19:45 Pulse Oximetry 92 10/14/24 18:00 Oxygen Delivery Room Air 10/14/24 19:45 MDM - Chest Pain MDM Narrative Medical decision making narrative: patient presents with left chest pain, Vital signs showing blood pressure 162/87 otherwise within normal limit Physical examination insignificant Differential diagnosis include coronary artery disease,, pulmonary embolism, colitis, diverticulitis, pneumonia, pleurisy Blood workup today includes CBC, CMP, D-dimer, troponin, lipase showed D-dimer of 1.3 creatinine 1.4 compared to 1.10 June 2024,glucose 280 Urinalysis showed no evidence of infection Chest x-ray showed no acute abnormalities CTA pulmonary rule out pulmonary embolism showed Currently patient is pain-free, troponin is negative x3, repeated EKG showed no acute abnormality or any difference compared to the 09 04. Patient was advised to follow-up with her family physician for further evaluation. Differential Diagnosis Differential diagnosis: Likely pneumothorax, stable angina, atypical chest pain, costochondritis and chest pain Medical Records Data Attestation: I reviewed the patient's medical records. Lab Data Attestation: I reviewed the patient's lab results. 10/14/24 10:37 10/14/24 10:37 Labs: Lab Results 10/14/24 10/14/24 10/14/24 Range/Units 10:25 10:37 13:47 WBC 9.4 (4.8-10.8) K/mm3 RBC 3.86 L (4.20-5.40) M/mm3 Hgb 11.7 L (12.0-15.0) g/dL Hct 35.9 (35.0-49.0) % MCV 93.0 (78.0-102.0) fL MCH 30.3 (27.0-31.0) pg MCHC 32.6 (32-36) g/dL RDW 13.2 (11.6-14.4) % Plt Count 260 (150-420) K/mm3 MPV 9.1 L (9.2-11.8) fl Immature Gran % (Auto) 0.9 H (0.0-0.0) % Neut % (Auto) 57.8 (50.0-70.0) % Lymph % (Auto) 31.6 (18.0-42.0) % [place] % (Auto) 6.7 (2.0-11.0) % Eos % (Auto) 2.3 (1.0-6.0) % Baso % (Auto) 0.7 (0.0-1.0) % Lymph # (Auto) 2.97 (1.10-4.50) K/mm3 [place] # (Auto) 0.63 (0.10-0.90) K/mm3 Eos # (Auto) 0.22 (0.02-0.50) K/mm3 Baso # (Auto) 0.07 (0.00-0.10) K/mm3 Abs Immat Gran (auto) 0.08 H (0.00-0.00) K/mm3 Absolute Neuts (auto) 5.42 (1.70-7.20) K/mm3 Absolute Nucleated RBC 0.00 (0.00-0.00) K/mm3 Nucleated RBC % 0.0 (0-0.0) % PT 10.1 (9.50-12.1) Seconds INR 0.9 APTT 25.8 (23.9-30.70) Sec D-Dimer 1.31 H* (0.19-0.50) mg/L Sodium 137 (136-145) mmol/L Potassium 4.6 (3.5-5.1) mmol/L Chloride 101 (98-108) mmol/L Carbon Dioxide 29 (21-32) mmol/L Anion Gap 7 (4-12) mmol/L BUN 21 H (7-18) mg/dL Creatinine 1.45 H (0.55-1.02) mg/dL Estim Creat Clear Calc 50 ml/min Estimated GFR 37 L (59 - ) Glucose 280 H (70-99) mg/dL Calculated Osmolality 297 H (285-295) mOsm/kg Calcium 9.0 (8.5-10.1) mg/dL Total Bilirubin 0.2 (0.00-1.00) mg/dL AST < 10 L (15-37) U/L ALT 21 (14-59) U/L Alkaline Phosphatase 87 (46-116) U/L Troponin I 4.6 4.5 (0.00-60.4) ng/L NT-Pro-B Natriuret Pep 220 H (0-125) pg/mL Total Protein 6.6 (6.4-8.2) g/dL Albumin 3.1 L (3.4-5.0) g/dL Lipase 46 (16-77) U/L Urine Color Yellow (Yellow) Urine Appearance Clear (Clear) Urine pH 6.0 (5.0-8.0) Ur Specific [facility] 1.025 H (1.010-1.020) Urine Protein Negative (Negative) Urine Glucose (UA) Trace H (Negative) Urine Ketones Negative (Negative) Ur Blood (Man) Negative (Negative) Urine Nitrate Negative (Negative) Urine Bilirubin Negative (Negative) Urine Urobilinogen 0.2 (0.2-1.0) mg/dL Leukocyte Esterase Rfl Negative (Negative) ROSALINDA/UL 10/14/24 Range/Units 17:13 WBC (4.8-10.8) K/mm3 RBC (4.20-5.40) M/mm3 Hgb (12.0-15.0) g/dL Hct (35.0-49.0) % MCV (78.0-102.0) fL MCH (27.0-31.0) pg MCHC (32-36) g/dL RDW (11.6-14.4) % Plt Count (150-420) K/mm3 MPV (9.2-11.8) fl Immature Gran % (Auto) (0.0-0.0) % Neut % (Auto) (50.0-70.0) % Lymph % (Auto) (18.0-42.0) % [place] % (Auto) (2.0-11.0) % Eos % (Auto) (1.0-6.0) % Baso % (Auto) (0.0-1.0) % Lymph # (Auto) (1.10-4.50) K/mm3 [place] # (Auto) (0.10-0.90) K/mm3 Eos # (Auto) (0.02-0.50) K/mm3 Baso # (Auto) (0.00-0.10) K/mm3 Abs Immat Gran (auto) (0.00-0.00) K/mm3 Absolute Neuts (auto) (1.70-7.20) K/mm3 Absolute Nucleated RBC (0.00-0.00) K/mm3 Nucleated RBC % (0-0.0) % PT (9.50-12.1) Seconds INR APTT (23.9-30.70) Sec D-Dimer (0.19-0.50) mg/L Sodium (136-145) mmol/L Potassium (3.5-5.1) mmol/L Chloride (98-108) mmol/L Carbon Dioxide (21-32) mmol/L Anion Gap (4-12) mmol/L BUN (7-18) mg/dL Creatinine (0.55-1.02) mg/dL Estim Creat Clear Calc ml/min Estimated GFR (59 - ) Glucose (70-99) mg/dL Calculated Osmolality (285-295) mOsm/kg Calcium (8.5-10.1) mg/dL Total Bilirubin (0.00-1.00) mg/dL AST (15-37) U/L ALT (14-59) U/L Alkaline Phosphatase (46-116) U/L Troponin I 4.3 (0.00-60.4) ng/L NT-Pro-B Natriuret Pep (0-125) pg/mL Total Protein (6.4-8.2) g/dL Albumin (3.4-5.0) g/dL Lipase (16-77) U/L Urine Color (Yellow) Urine Appearance (Clear) Urine pH (5.0-8.0) Ur Specific [facility] (1.010-1.020) Urine Protein (Negative) Urine Glucose (UA) (Negative) Urine Ketones (Negative) Ur Blood (Man) (Negative) Urine Nitrate (Negative) Urine Bilirubin (Negative) Urine Urobilinogen (0.2-1.0) mg/dL Leukocyte Esterase Rfl (Negative) ROSALINDA/UL Imaging Data Radiologist's impression: Impressions Chest X-Ray 10/14/24 10:37 IMPRESSION: 1. No acute cardiopulmonary disease. Chest CTA 10/14/24 11:39 IMPRESSION: 1. No pulmonary embolus. ECG Data EKG #1: Attestation: I personally reviewed and interpreted this ECG as follows: ECG completion date: 10/14/24 Interpretation: EKG on arrival showed normal sinus rhythm at 80 beats per minute, normal EKG EKG #2: Attestation: I personally reviewed and interpreted this ECG as follows: ECG completion date: 10/14/24 Interpretation: repeated EKG 3 hour after the 1st 1 showed normal sinus rhythm at 65 beats per minute otherwise no significant changes compared to the 1st 1 early today Critical Care Time Critical Care Time Critical Care Time: No Discharge Plan Discharge Clinical Impression: Chest pain at rest Patient Disposition: Home, Self-Care Condition: Improved Instructions: Chest Pain (ED) Additional Instructions: Return if symptoms are worsening , call your family physician for appointment, take Tylenol as as needed for aches and pain, continue home medications. Patient Language: Greenlandic Prescriptions: No Action (DME) Continuous glucose monitor See Rx Instructions .Route .MEDSUPPLY Qty: 1 0RF Rx Instructions: Needs sensors and reader and all related supplies such as alcohol pads aspirin [Adult Low Dose Aspirin] 81 mg tablet,delayed release (DR/EC) 81 mg PO DAILY Patient Comments: ON HOLD FOR SURGERY esomeprazole magnesium [Nexium 24HR] 20 mg capsule,delayed release(DR/EC) 20 mg PO DAILY Qty: 90 1RF atorvastatin 10 mg tablet 10 mg PO QHS Qty: 90 3RF cholecalciferol (vitamin D3) [Vitamin D3] 125 mcg (5,000 unit) Tablet 125 mcg PO DAILY tolterodine [Detrol LA] 2 mg capsule,extended release 24hr 2 mg PO HS metformin 500 mg tablet extended release 24 hr 1,000 mg PO DAILY escitalopram oxalate [Lexapro] 10 mg tablet 10 mg PO DAILY Qty: 30 5RF gabapentin 300 mg capsule 300 mg PO TID Qty: 270 1RF glipizide 10 mg tablet extended release 24hr 10 mg PO DAILY Qty: 90 1RF lisinopril-hydrochlorothiazide 20-12.5 mg tablet 1 tablet PO .every morning Qty: 90 1RF lisinopril 20 mg tablet 20 mg PO .evening Qty: 90 1RF methylprednisolone [Medrol (Valeriano)] 4 mg tablets,dose pack See Rx Instructions PO PER PKG DIR Qty: 21 0RF Rx Instructions: PO PER PKG DIR bupropion HCl [Wellbutrin SR] 150 mg tablet sustained-release 12 hr 150 mg PO BID Qty: 180 1RF Trulicity 3 mg/0.5 mL pen injector 3 mg subcut WEEKLY Qty: 2 2RF Follow-up/Referrals: Fran Finley MD [Primary Care Provider] - Quality HEART score for chest pain patients History: slightly suspicious ECG: normal Age: > 45 and < 65 years Risk factors: > or = to 3 risk factors of atherosclerotic disease Troponin: < or = to 1x normal limit Heart score: 3
[2024-10-14] MEDS: ASPIRIN 81 MG CHEWABLE TABLET 324 MG PO (10:37)
[2024-10-14 10:41] LABS: Basophils Absolute Auto 0.07 K/mm3 (0.00-0.10); Basophils Percent Auto 0.7 % (0.0-1.0); Eosinophils Absolute Auto 0.22 K/mm3 (0.02-0.50); Eosinophils Percent Auto 2.3 % (1.0-6.0); Hematocrit 35.9 % (35.0-49.0); Hemoglobin 11.7 g/dL (12.0-15.0); Immature Granulocyte Absolute 0.08 K/mm3 (0.00-0.00); Immature Granulocyte Percent A 0.9 % (0.0-0.0); Lymphocytes Absolute Auto 2.97 K/mm3 (1.10-4.50); Lymphocytes Percent Auto 31.6 % (18.0-42.0); Mean Corpuscular HGB Conc 32.6 g/dL (32-36); Mean Corpuscular Hemoglobin 30.3 pg (27.0-31.0); Mean Platelet Volume 9.1 fl (9.2-11.8); Monocytes Absolute Auto 0.63 K/mm3 (0.10-0.90); Monocytes Percent Auto 6.7 % (2.0-11.0); Neutrophils Absolute Auto 5.42 K/mm3 (1.70-7.20); Neutrophils Percent Auto 57.8 % (50.0-70.0); Platelet Count Result 260 K/mm3 (150-420); Red Blood Count 3.86 M/mm3 (4.20-5.40); Red Cell Distribution Width 13.2 % (11.6-14.4); White Blood Count 9.4 K/mm3 (4.8-10.8)
[2024-10-14 10:49] LABS: Add Urine Microscopic? NO; Appearance Urine Clear (Clear); Bilirubin Urine Negative (Negative); Blood Urine Negative (Negative); Color Urine Yellow (Yellow); Glucose Urine UA Trace (Negative); Ketones Urine Negative (Negative); Leukocyte Esterase Ur Negative LEU/UL (Negative); Nitrate Urine Negative (Negative); Protein Urine Negative (Negative); Specific Grav Ur 1.025 (1.010-1.020); Urobilinogen Urine 0.2 mg/dL (0.2-1.0)
[2024-10-14 10:56] LABS: INR 0.9; Partial Thromboplastin Time 25.8 Sec (23.9-30.70); Prothrombin Time 10.1 Seconds (9.50-12.1)
[2024-10-14 11:04] LABS: D Dimer 1.31 mg/L (0.19-0.50)
[2024-10-14 11:06] LABS: Alanine Aminotransferase 21 U/L (14-59); Albumin Level 3.1 g/dL (3.4-5.0); Alkaline Phosphatase 87 U/L (46-116); Anion Gap 7 mmol/L (4-12); Aspartate Amino Transferase < 10 U/L (15-37); Bilirubin,Total 0.2 mg/dL (0.00-1.00); Blood Urea Nitrogen 21 mg/dL (7-18); Carbon Dioxide 29 mmol/L (21-32); Chloride 101 mmol/L (98-108); Estimated CRCL calculation 50 ml/min; Estimated Glomerular Filt Rate 37; Glucose 280 mg/dL (70-99); Lipase 46 U/L (16-77); NT Pro B Type Natriuretic Pept 220 pg/mL (0-125); Osmolality Calculated 297 mOsm/kg (285-295); Potassium 4.6 mmol/L (3.5-5.1); Sodium 137 mmol/L (136-145); Total Protein 6.6 g/dL (6.4-8.2)
[2024-10-14 11:30] LABS: Troponin I 4.6 ng/L (0.00-60.4)
[2024-10-14 14:25] LABS: Troponin I 4.5 ng/L (0.00-60.4)
[2024-10-14] MEDS: MAG HYDROX/ALUMINUM HYD/SIMETH 30 ML, PHENobarb/HYOSCY/ATROPINE/SCOP 32.4 MG, LIDOCAINE... PO (14:30)
--- NOTE | 2024-10-14 14:31 | PC.NURSE ---
Per ERP start with Gi-Cocktail, then go to morphine if symptoms are not relieved.
--- NOTE | 2024-10-14 15:03 | ECG_ITS ---
Test Date: 2024-10-14 15:24:28 Measurements Intervals [place] Rate: 65 P: 50 [place]: 143 QRS: 42 QRSD: 90 T: 55 QT: 407 QTc: 424 Interpretive Statements SINUS RHYTHM NORMAL ECG Compared to ECG 10/14/2024 10:16:18 No significant changes Electronically Signed On 10-14-2024 15:32:39 PLANER CHAIN OFFBEARER by Henri Domínguez D.O.
[2024-10-14 17:35] LABS: Troponin I 4.3 ng/L (0.00-60.4)
--- NOTE | 2024-10-14 19:27 | PC.NURSE ---
Pt resting comfortably, she reports no pain, POC to d/c home and f/u w/ PCP and o/p cardiology consult discussed. Pt stated understanding. VSS.
== END 2024-10-14 19:51 | disposition home or self-care (01) ==
PROVIDERS: Emergency Provider Emergency Medicine; PCP Family Medicine
DX: R07.9 Chest pain, unspecified (principal); I12.9 Hypertensive chronic kidney disease with stage 1 through stage 4 chronic kidney disease, or unspecified chronic kidney disease; E11.22 Type 2 diabetes mellitus with diabetic chronic kidney disease; N18.4 Chronic kidney disease, stage 4 (severe); E78.5 Hyperlipidemia, unspecified; Z79.82 Long term (current) use of aspirin; Z79.84 Long term (current) use of oral hypoglycemic drugs; F17.290 Nicotine dependence, other tobacco product, uncomplicated
CPT/HCPCS: 36415; 71045; 71275; 80053; 81003; 83690; 83880; 84484; 85025; 85380; 85610; 85730; 93005; 96374; 96375; 99284; A9270; Q9967

== ENCOUNTER 2024-11-01 16:33 | Emergency (ER) | payer OTHER, SELFPAY ==
[2024-11-01 16:39] VITALS: BP 153/121; PULSE 112; RESP 21; TEMP 36.5; O2SAT 99
--- NOTE | 2024-11-01 16:42 | PC.NURSE ---
Covid culture sent to lab
--- NOTE | 2024-11-01 16:43 | ED.URI ---
HPI - URI/Sore Throat General Chief Complaint: Upper Respiratory Infection Stated Complaint: uri Time Seen by Provider: 11/01/24 16:43 Source: patient and family Mode of arrival: ambulatory Limitations: no limitations History of Present Illness HPI Narrative: Patient is a 59-year-old female with cough and congestion with some GERD complaints as well and myalgias for the past 3-4 days. She recently changed her GERD medication. She also has a complaint to around the left side of her neck of sore throat. shortness of breath but not chest pain. MD elicited complaint: fever ( Feverish and not definite fever), cough, sore throat and nasal congestion Pertinent past history: other ( hyperlipidemia, diabetes 2, hypertension, GERD) Onset (ago): day(s) ( 3-4) Consistency: constant Severity: moderate Pain scale (0-10): 2 Description of mucous: clear Able to tolerate fluids by mouth: Yes Exacerbating factors: nothing Relieving factors: nothing Context: other ( Patient having cough and congestion and throat pain for the past 3-4 days on resolving; associated shortness of breath) Associated symptoms: fever ( not definite value), nasal congestion, sore throat, cough, shortness of breath and nausea Treatments prior to arrival: none Related Data Home Medications ?Medication ?Instructions ?Recorded ?Confirmed ?Last Taken ?Type aspirin 81 mg tablet,delayed 81 mg PO DAILY 09/18/19 10/18/24 06/13/24 History release (Adult Low Dose Aspirin) cholecalciferol (vitamin D3) 125 125 mcg PO DAILY 05/28/24 10/18/24 06/13/24 History mcg (5,000 unit) tablet (Vitamin D3) Allergies Allergy/AdvReac Type Severity Reaction Status Date / Time vancomycin Allergy Severe Rash, Verified 11/01/24 17:03 DIFFICULTY BREATHING,SWELLING Review of Systems Review of Systems: All systems reviewed & are unremarkable except as noted in HPI and below Constitutional: Constitutional: Reports no additional constitutional complaints Eyes: Eyes: Reports no additional eye complaints ENT: Reports system reviewed and no additional complaints, except as documented Cardiovascular: Cardiovascular: Reports no additional cardiovascular complaints Respiratory: Respiratory: Reports no additional respiratory complaints Gastrointestinal: Gastrointestinal: Reports no additional gastrointestinal complaints Genitourinary: Genitourinary: Reports no additional female genitourinary complaints Musculoskeletal: Musculoskeletal: Reports no additional musculoskeletal complaints Integumentary/Breasts: Skin/Breast: Reports system reviewed and no additional complaints, except as docu Neurologic: Reports system reviewed and no additional complaints, except as documented Psychiatric: Psychiatric: Reports no additional psychiatric complaints Endocrine: Endocrine: Reports no additional endocrine complaints Hematologic/Lymphatic: Hematologic/Lymphatic: Reports no additional hematologic/lymphatic complaints Allergic/Immunologic: Allergic/Immunologic: Reports no additional allergic/immunologic complaints PMFSH Past Medical History Medical History OAB (overactive bladder) Type 2 diabetes mellitus with stage 4 chronic kidney disease GFR 15-29 CKD (chronic kidney disease) stage 4, GFR 15-29 ml/min Anxiety Type 2 diabetes mellitus without complications Arthritis of knee Cholelithiasis 06/2009 GERD without esophagitis Dyslipidemia Unspecified osteoarthritis, unspecified site Essential (primary) hypertension Surgical History Surgical History Hx of neck surgery (Unknown) Salivary gland removal Hx of tubal ligation (~1986) History of arthroplasty of both knees Left total - 02/10/2016 Right total - 12/29/2015 History of cholecystectomy 04/26/2013 Family History Family History Father Hypertension Family history of gastrointestinal disorder Family history of chronic obstructive pulmonary disease Malignant neoplasm of prostate Family history of diabetes mellitus in first degree relative Mother Hypertension Other Aneurysm Atrial myxoma Cerebrovascular accident Diabetes mellitus Family history of arthritis Family history of gout Family history of heart disease in male family member before age 55 Family history of primary malignant neoplasm of liver Social History Social History Social History: Caffeine- daily Smoking packs per day: 1 Smoking cigarettes per day: 20.0 Years smoked: 20 Smoking pack-years: 20.00 Smoking status: Former smoker Tobacco type: cigarettes Second hand tobacco smoke exposure: Yes Smoking end date: 07/26/22 Additional smoking assessment comments: vapes occassionally Alcohol intake: never Substance use: never Substance use type: does not use Do You Feel Safe in your Home?: Yes Lack of Transportation: No Lack of Food: Never True Current Housing: I Have Housing Concerned About Future Housing: No Difficulty Paying Gas/Electric Bills: No Difficulty Paying for Meds: No Currently Unemployed: No Education: Trade/Vocational Certificate Difficulty w/ Childcare or Family Care: No Living arrangements: with family Occupation/Education: occupation 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- [employer] Spiritual care concerns: No Exam Const: General: ill appearing Nutritional Appearance: well nourished Orientation/consciousness: patient oriented x3 Limitations: no limitations HENMT: Head: normal to inspection Ears: external ears normal Face/Nose/Sinus: Normal external nose present Eyes: Conjunctivae: conjunctivae normal Pupils: Equal, round and reactive pupils present EOM: EOMs intact bilaterally Neck: Neck: normal visual inspection Chest: Chest palpation & inspection: normal inspection of the chest Resp: Effort & Inspection: normal respiratory effort, not labored, no retractions, not tachypneic and no use of accessory muscles Auscultation: not clear to auscultation bilaterally, crackles ( questionable left lung base), no rales, no rhonchi, no wheezes, breath sounds present and diminished lung sounds ( left lung base) Cardio: Rate: regular rate Rhythm: regular rhythm Heart sounds: no murmurs GI: Inspection: non-distended GI Palp: Yes Soft to palpation and No Tenderness to palpation present (GI) Auscultation: normal bowel sounds : General: Yes bladder normal to palpation Back/Spine/Pelvis: Back: no CVA tenderness Skin: General skin exam: normal color Rashes: no rashes Wounds: no wounds Neuro: General: patient oriented x3 Cranial nerves: Yes Nystagmus not present Speech: normal speech Extrem: General: normal to inspection Psych: Mental Status: mental status grossly normal Affect: normal affect Attitude: cooperative Course Vital Signs Vital signs: Vital Signs Temperature 36.5 C 11/01/24 16:39 Pulse Rate 112 H 11/01/24 16:39 Respiratory Rate 21 H 11/01/24 16:39 Blood Pressure 153/121 H 11/01/24 16:39 Pulse Oximetry 99 11/01/24 16:39 Oxygen Delivery Room Air 11/01/24 16:39 Temperature 36.5 C 11/01/24 16:39 Pulse Rate 112 H 11/01/24 16:39 Respiratory Rate 21 H 11/01/24 16:39 Blood Pressure 153/121 H 11/01/24 16:39 Pulse Oximetry 99 11/01/24 16:53 Oxygen Delivery Room Air 11/01/24 16:53 MDM - URI/Sore Throat MDM Narrative Medical decision making narrative: patient is 59-year-old female with multiple up her complaints and shortness of breath. We will do initially COVID panel swab and further workup if negative studies. Lab Data Attestation: I reviewed the patient's lab results. 11/01/24 18:10 11/01/24 18:10 Labs: Lab Results 11/01/24 11/01/24 11/01/24 Range/Units 16:37 17:50 18:10 WBC 12.1 H (4.8-10.8) K/mm3 RBC 4.20 (4.20-5.40) M/mm3 Hgb 12.6 (12.0-15.0) g/dL Hct 38.7 (35.0-49.0) % MCV 92.1 (78.0-102.0) fL MCH 30.0 (27.0-31.0) pg MCHC 32.6 (32-36) g/dL RDW 12.8 (11.6-14.4) % Plt Count 304 (150-420) K/mm3 MPV 9.1 L (9.2-11.8) fl Immature Gran % (Auto) 0.6 H (0.0-0.0) % Neut % (Auto) 63.3 (50.0-70.0) % Lymph % (Auto) 24.6 (18.0-42.0) % [place] % (Auto) 7.8 (2.0-11.0) % Eos % (Auto) 2.9 (1.0-6.0) % Baso % (Auto) 0.8 (0.0-1.0) % Lymph # (Auto) 2.97 (1.10-4.50) K/mm3 [place] # (Auto) 0.94 H (0.10-0.90) K/mm3 Eos # (Auto) 0.35 (0.02-0.50) K/mm3 Baso # (Auto) 0.10 (0.00-0.10) K/mm3 Abs Immat Gran (auto) 0.07 H (0.00-0.00) K/mm3 Absolute Neuts (auto) 7.65 H (1.70-7.20) K/mm3 Absolute Nucleated RBC 0.00 (0.00-0.00) K/mm3 Nucleated RBC % 0.0 (0-0.0) % D-Dimer 1.24 H* (0.19-0.50) mg/L Sodium 140 (136-145) mmol/L Potassium 4.5 (3.5-5.1) mmol/L Chloride 101 (98-108) mmol/L Carbon Dioxide 31 (21-32) mmol/L Anion Gap 8 (4-12) mmol/L BUN 22 H (7-18) mg/dL Creatinine 1.57 H (0.55-1.02) mg/dL Estim Creat Clear Calc 46 ml/min Estimated GFR 33 L (59 - ) Glucose 140 H (70-99) mg/dL Calculated Osmolality 295 (285-295) mOsm/kg Calcium 9.2 (8.5-10.1) mg/dL Total Bilirubin 0.3 (0.00-1.00) mg/dL AST 10 L (15-37) U/L ALT 22 (14-59) U/L Alkaline Phosphatase 107 (46-116) U/L Troponin I 7.2 (0.00-60.4) ng/L NT-Pro-B Natriuret Pep 245 H (0-125) pg/mL Total Protein 7.2 (6.4-8.2) g/dL Albumin 3.3 L (3.4-5.0) g/dL Urine Color Yellow (Yellow) Urine Appearance Clear (Clear) Urine pH 5.5 (5.0-8.0) Ur Specific [place] 1.020 (1.010-1.020) Urine Protein Negative (Negative) Urine Glucose (UA) Negative (Negative) Urine Ketones Negative (Negative) Ur Blood (Man) Negative (Negative) Urine Nitrate Negative (Negative) Urine Bilirubin Negative (Negative) Urine Urobilinogen 0.2 (0.2-1.0) mg/dL Leukocyte Esterase Rfl Negative (Negative) ROSALINDA/UL Influenza A (RT-PCR) Negative (Negative) Influenza B (RT-PCR) Negative (Negative) RSV (RT-PCR) Negative (Negative) SARS-CoV-2 RNA (RT-PCR) Negative (Negative) Group A Strep (PCR) Not detected (Negative) Imaging Data Attestation: I personally reviewed and interpreted this imaging study as follows: Radiologist's impression: Chest x-rays negative for acute process CTA of the chest for PE shows IMPRESSION: 1. No pulmonary embolism. 2. Focal consolidation in the lingula otherwise, No acute cardiopulmonary pathology. 3. Soft tissue density between the liver and right atrium which may be dilatation in the inferior vena cava. Follow-up advised. ECG Data EKG #1: Attestation: I personally reviewed and interpreted this ECG as follows: ECG completion date: 11/01/24 ECG completion time: 17:47 EKG Interpretation: tachycardia, sinus rhythm, no ectopy, non-specific ST changes, normal QRS, normal QT and NL axis Discharge Plan Discharge Clinical Impression: Community acquired pneumonia Qualifiers: Laterality: left Lung location: unspecified part of lung Qualified Code(s): J18.9 - Pneumonia, unspecified organism Patient Disposition: Home, Self-Care Condition: Stable Instructions: Antibiotic Form, Community Acquired Pneumonia (ED) Patient Language: Mohawk Prescriptions: New levofloxacin 750 mg tablet 750 mg PO DAILY Qty: 5 0RF prednisone 20 mg tablet 40 mg PO DAILY 3 Days Qty: 6 0RF No Action (DME) Continuous glucose monitor See Rx Instructions .Route .MEDSUPPLY Qty: 1 0RF Rx Instructions: Needs sensors and reader and all related supplies such as alcohol pads omeprazole 20 mg capsule,delayed release(DR/EC) 20 mg PO DAILY Qty: 90 2RF metformin 500 mg tablet extended release 24 hr 1,000 mg PO BID Qty: 360 1RF aspirin [Adult Low Dose Aspirin] 81 mg tablet,delayed release (DR/EC) 81 mg PO DAILY Patient Comments: ON HOLD FOR SURGERY atorvastatin 10 mg tablet 10 mg PO QHS Qty: 90 3RF cholecalciferol (vitamin D3) [Vitamin D3] 125 mcg (5,000 unit) Tablet 125 mcg PO DAILY escitalopram oxalate [Lexapro] 10 mg tablet 10 mg PO DAILY Qty: 30 5RF gabapentin 300 mg capsule 300 mg PO TID Qty: 270 1RF glipizide 10 mg tablet extended release 24hr 10 mg PO DAILY Qty: 90 1RF lisinopril-hydrochlorothiazide 20-12.5 mg tablet 1 tablet PO .every morning Qty: 90 1RF lisinopril 20 mg tablet 20 mg PO .evening Qty: 90 1RF Trulicity 3 mg/0.5 mL pen injector 3 mg subcut WEEKLY Qty: 2 2RF (DME) Dexcom G7 Business Office Specialist Misc See Rx Instructions .Route Qty: 1 11RF Rx Instructions: As directed (DME) Dexcom G7 Sensor Device See Rx Instructions .Route Qty: 1 11RF Rx Instructions: Check blood sugar BID and prn Follow-up/Referrals: Fran Finley MD [Primary Care Provider] - Time of Disposition: 20:57
[2024-11-01 16:53] VITALS: O2SAT 99
[2024-11-01 17:11] LABS: Strep Group A RT-PCR NOT DETECTED (Negative)
[2024-11-01 17:15] LABS: SARS-CoV-2 RNA PCR Negative (Negative)
[2024-11-01 17:17] LABS: Influenza A QL RT-PCR Negative (Negative); Influenza B QL RT-PCR Negative (Negative); RSV RNA, RT-PCR Negative (Negative)
[2024-11-01 18:13] LABS: Basophils Percent Auto 0.8 % (0.0-1.0); Eosinophils Absolute Auto 0.35 K/mm3 (0.02-0.50); Eosinophils Percent Auto 2.9 % (1.0-6.0); Hematocrit 38.7 % (35.0-49.0); Hemoglobin 12.6 g/dL (12.0-15.0); Immature Granulocyte Absolute 0.07 K/mm3 (0.00-0.00); Immature Granulocyte Percent A 0.6 % (0.0-0.0); Lymphocytes Absolute Auto 2.97 K/mm3 (1.10-4.50); Lymphocytes Percent Auto 24.6 % (18.0-42.0); Mean Corpuscular HGB Conc 32.6 g/dL (32-36); Mean Corpuscular Volume 92.1 fL (78.0-102.0); Mean Platelet Volume 9.1 fl (9.2-11.8); Monocytes Absolute Auto 0.94 K/mm3 (0.10-0.90); Monocytes Percent Auto 7.8 % (2.0-11.0); Neutrophils Absolute Auto 7.65 K/mm3 (1.70-7.20); Neutrophils Percent Auto 63.3 % (50.0-70.0); Platelet Count Result 304 K/mm3 (150-420); Red Cell Distribution Width 12.8 % (11.6-14.4); White Blood Count 12.1 K/mm3 (4.8-10.8)
[2024-11-01 18:14] LABS: Add Urine Microscopic? NO; Appearance Urine Clear (Clear); Bilirubin Urine Negative (Negative); Blood Urine Negative (Negative); Color Urine Yellow (Yellow); Glucose Urine UA Negative (Negative); Ketones Urine Negative (Negative); Leukocyte Esterase Ur Negative LEU/UL (Negative); Nitrate Urine Negative (Negative); Protein Urine Negative (Negative); Urobilinogen Urine 0.2 mg/dL (0.2-1.0); pH Urine 5.5 (5.0-8.0)
[2024-11-01 18:37] LABS: Alanine Aminotransferase 22 U/L (14-59); Albumin Level 3.3 g/dL (3.4-5.0); Alkaline Phosphatase 107 U/L (46-116); Anion Gap 8 mmol/L (4-12); Aspartate Amino Transferase 10 U/L (15-37); Bilirubin,Total 0.3 mg/dL (0.00-1.00); Blood Urea Nitrogen 22 mg/dL (7-18); Calcium 9.2 mg/dL (8.5-10.1); Carbon Dioxide 31 mmol/L (21-32); Chloride 101 mmol/L (98-108); Estimated CRCL calculation 46 ml/min; Estimated Glomerular Filt Rate 33; Glucose 140 mg/dL (70-99); NT Pro B Type Natriuretic Pept 245 pg/mL (0-125); Osmolality Calculated 295 mOsm/kg (285-295); Potassium 4.5 mmol/L (3.5-5.1); Sodium 140 mmol/L (136-145); Total Protein 7.2 g/dL (6.4-8.2)
[2024-11-01 18:42] LABS: Troponin I 7.2 ng/L (0.00-60.4)
[2024-11-01 18:43] LABS: D Dimer 1.24 mg/L (0.19-0.50)
[2024-11-01] MEDS: ONDANSETRON INJ 4 MG/2 ML VIAL IV PUSH (19:23)
[2024-11-01] MEDS: HYDROcodone/acetaminophen (*CRX) 5-325 MG TABLET 1 TAB PO (19:43)
[2024-11-01] MEDS: levoFLOXacin TAB 500 MG, levoFLOXacin TAB 250 MG 750 MG PO (21:08)
[2024-11-01] MEDS: predniSONE 20 MG TABLET 40 MG PO (21:09)
[2024-11-01 21:40] VITALS: BP 140/85; PULSE 95; RESP 18; TEMP 36.6; O2SAT 100
== END 2024-11-01 21:40 | disposition home or self-care (01) ==
PROVIDERS: Emergency Provider Emergency Medicine; PCP Family Medicine
DX: J18.9 Pneumonia, unspecified organism (principal); E78.5 Hyperlipidemia, unspecified; I12.9 Hypertensive chronic kidney disease with stage 1 through stage 4 chronic kidney disease, or unspecified chronic kidney disease; E11.22 Type 2 diabetes mellitus with diabetic chronic kidney disease; N18.4 Chronic kidney disease, stage 4 (severe); Z20.822 Contact with and (suspected) exposure to COVID-19; Z87.891 Personal history of nicotine dependence
CPT/HCPCS: 36415; 71046; 71275; 80053; 81003; 83880; 84484; 85025; 85380; 87637; 87651; 93005; 96374; 99284; A9270; J2405; J7512; Q9967

== ENCOUNTER 2024-11-13 08:31 | Outpatient (CLI) | payer OTHER, SELFPAY ==
--- NOTE | 2024-11-23 18:31 | P.SLEEP_ITS ---
Sleep Study - Home Unattended Date of Study: 11/13/24 Ordering Provider: Tangela Chong NP Interpreting Provider: Sofia Bunch MD Home Sleep Study Type: Watch PAT Height: 1.65 m Weight: 131.088 kg Body Mass Index: 48.1 Neck Circumference (inches): 15.5 [place]: 11 Reason for Sleep Study Hypersomnolence Sleep History Nohelia Hardy is a 59-year-old female with excessive daytime sleepiness. She has used an oximeter at home, has found that her saturation is 88% at times while sleeping and the alarm wakes her up when this happens. She has a medical comorbidity of hypertension. She has loud snoring and witnessed apneas. She has difficulty breathing when she sleeps on her back. She has morning headaches. When she awakens she has a sore throat and a dry mouth. She has nocturnal heartburn and wakes more than 3 times at night to urinate. She has difficulty falling asleep and staying asleep. 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 She does not take any medications to get to sleep. She does not have anxiety about her sleep issues. She does clench and grind her teeth during sleep. She has excessive leg kicking during sleep and restless feelings in her legs before sleep. She has non restorative sleep wakes up feeling tired and she is sleepy during the day. She has a urge to fall asleep during the day however does not have the urge to fall asleep while driving. She does have an urge to move her legs which is worse when she is resting. It gets better with activity. This issue occurs in the evening or night time. This does give her concern and it interferes with her ability to sleep easily. She has difficulty falling asleep at the desired bedtime Her usual bedtime is 11:00 p.m. taking an hour to fall asleep, spending 10 hours in bed but only 4 hours sleeping. This is the same schedule on her days off. Habits: Tobacco: former smoker, quit in 2021 Caffeine: 3-4 cups daily Alcohol: no Recreational substances: no PMFSH Past Medical History Medical History OAB (overactive bladder) Type 2 diabetes mellitus with stage 4 chronic kidney disease GFR 15-29 CKD (chronic kidney disease) stage 4, GFR 15-29 ml/min Anxiety Type 2 diabetes mellitus without complications Arthritis of knee Cholelithiasis 06/2009 GERD without esophagitis Dyslipidemia Unspecified osteoarthritis, unspecified site Essential (primary) hypertension Surgical History Surgical History Hx of neck surgery (Unknown) Salivary gland removal Hx of tubal ligation (~1986) History of arthroplasty of both knees Left total - 02/10/2016 Right total - 12/29/2015 History of cholecystectomy 04/26/2013 Family History Family History Father Hypertension Family history of gastrointestinal disorder Family history of chronic obstructive pulmonary disease Malignant neoplasm of prostate Family history of diabetes mellitus in first degree relative Mother Hypertension Other Aneurysm Atrial myxoma Cerebrovascular accident Diabetes mellitus Family history of arthritis Family history of gout Family history of heart disease in male family member before age 55 Family history of primary malignant neoplasm of liver Social History Social History Social History: Caffeine- daily Smoking packs per day: 1 Smoking cigarettes per day: 20.0 Years smoked: 20 Smoking pack-years: 20.00 Smoking status: Former smoker Tobacco type: cigarettes Second hand tobacco smoke exposure: Yes Smoking end date: 07/26/22 Additional smoking assessment comments: vapes occassionally Alcohol intake: never Substance use: never Substance use type: does not use Do You Feel Safe in your Home?: Yes Lack of Transportation: No Lack of Food: Never True Current Housing: I Have Housing Concerned About Future Housing: No Difficulty Paying Gas/Electric Bills: No Difficulty Paying for Meds: No Currently Unemployed: No Education: Trade/Vocational Certificate Difficulty w/ Childcare or Family Care: No Living arrangements: with family Occupation/Education: occupation 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- [employer] Spiritual care concerns: No Medications Home Medications ?Medication ?Instructions ?Recorded ?Confirmed ?Type aspirin 81 mg tablet,delayed 81 mg PO DAILY 09/18/19 10/18/24 History release (Adult Low Dose Aspirin) Continuous glucose monitor #1 ea 05/03/24 10/18/24 Rx cholecalciferol (vitamin D3) 125 125 mcg PO DAILY 05/28/24 10/18/24 History mcg (5,000 unit) tablet (Vitamin D3) gabapentin 300 mg capsule 300 mg PO TID #270 caps 06/03/24 10/18/24 Rx glipizide 10 mg tablet, extended 10 mg PO DAILY #90 tabs 06/11/24 10/18/24 Rx release 24 hr atorvastatin 10 mg tablet 10 mg PO QHS #90 tabs 06/26/24 10/18/24 Rx lisinopril 20 1 tablet PO .every morning #90 tabs 07/15/24 10/18/24 Rx mg-hydrochlorothiazide 12.5 mg tablet lisinopril 20 mg tablet 20 mg PO .evening #90 tabs 07/26/24 10/18/24 Rx dulaglutide 3 mg/0.5 mL 3 mg (0.5 mL) subcut WEEKLY #2 mL 09/16/24 10/18/24 Rx subcutaneous pen injector (Trulicity) metformin 500 mg tablet,extended 1,000 mg (2 x 500 mg) PO BID #360 10/18/24 10/18/24 Rx release 24 hr tabs omeprazole 20 mg capsule,delayed 20 mg PO DAILY #90 caps 10/18/24 10/18/24 Rx release blood-glucose meter,continuous #1 ea 10/29/24 Rx (Dexcom G7 Surface Grinder Tender) blood-glucose sensor (Dexcom G7 #1 ea 10/29/24 Rx Sensor device) levofloxacin 750 mg tablet 750 mg PO DAILY #5 tabs 11/01/24 Rx prednisone 20 mg tablet 40 mg (2 x 20 mg) PO DAILY 3 days 11/01/24 Rx #6 tabs escitalopram oxalate 10 mg tablet 10 mg PO DAILY #30 tabs 11/13/24 Rx (Lexapro) Sleep Procedure The sleep study was completed using [employer] a technically adequate device with seven channels: peripheral arterial tone, actigraphy, body position, snore, respiratory movement, pulse oximetry, sleep staging, and heart rate. Prior to using the device, the patient received verbal and written instructions for its application and was provided with the help desk phone number for additional telephonic instruction with 24-hour availability of qualified personnel to answer questions. Sleep Architecture The total recording time is 8 hrs, 28 min. The total sleep time is 7 hrs, 18 min. Sleep latency is 19 minutes. REM latency is 84 minutes. The patient had 14 episodes of waking. Sleep architecture shows 10.8% deep sleep, 73.1% light sleep, and and a 16.1% stage REM. The patient spent 20.5% of total sleep time in the supine position. Sleep efficiency was 86%. Respiratory Analysis The overall AHI (pAHI 3%:) is 81.3. The central AHI is 5.2. The AHI was 79.0 in NREM and 93.0 in REM sleep. The AHI was 86.8 in Supine and 79.8 in Non-supine sleep. Percent of Denny Lopez respirations is 22.6% Oximetry Data The oxygen desaturation index (JULES 4%:) is 74.1. The mean saturation is 91%, and the lowest saturation is 69%. Time spent with saturation < 88% is 96.3 minutes. Snoring Profile Snoring average intensity is 50 dB. The patient snored above 45 decibels for 271.0 minutes, 61.9% of sleep time. Cardiac Profile The average pulse rate is 79 beats per minutes. The lowest pulse rate is 53 bpm. The highest pulse rate is 104 bpm. Cardiac rhythm analysis in sleep does not detect significant atrial fibrillation. Premature beats occurred 3.5 per minute. Assessment and Plan Assessment and Plan (1) Obstructive sleep apnea: Code(s): G47.33 - Obstructive sleep apnea (adult) (pediatric) Status: Acute Assessment and Plan: This home sleep test using WatchPat on 11/13/2024 shows extremely severe obstructive sleep apnea, the apnea-hypopnea index using a 3% criteria is 81.3, using a 4% criteria 73 events per hour. Patient has a central apnea-hypopnea index of 5.2 which is elevated, above 5 events per hour however Denny-Lopez respiration is out of proportion to the degree of central sleep apnea. The Denny-Lopez respirations occurred during 22.6% of the sleep time. This patient desaturated to 69% and spent 96.3 minutes, 22% the study below 88% saturation. She is not a candidate for auto PAP. She needs to have a dedicated full night CPAP titration in the sleep lab with a sleep available, if needed, to take at the start of the titration, not at home. Effective sleep aids include Ambien 5 mg to 10 mg, or Lunesta 2 mg to 3 mg. She needs have an echocardiogram to evaluate for cardiac dysfunction. Denny-Lopez respirations can be seen in the setting of left ventricular dysfunction and stroke however the patient does not have a history of these. BMI is 48. Weight management is advised. Clinical data suggests that weight loss of 10% can reduce the severity of respiratory events and snoring and improve AHI by as much as 25%. (2) Denny-Lopez respiration: Code(s): R06.3 - Periodic breathing Status: Acute Assessment and Plan: see above; the patient spent 22.6% of the night in Denny-Lopez breathing, higher than expected for a central apnea index of 5.2. (3) Central sleep apnea: Code(s): G47.31 - Primary central sleep apnea Status: Acute Assessment and Plan: The patient had a central apnea index of 5.2, elevated, normal is fewer than 5 central apneas per hour. Central sleep apnea can be seen in patients with left ventricular dysfunction, stroke, alcohol and opioid dependence. The patient does not have a history of any of these conditions. Echocardiogram is indicated. Data The data obtained during this sleep study is adequate for interpretation. Certification This sleep study has been reviewed by a board certified sleep medicine physician.
[2024-11-23 18:38] VITALS: BMI 48.1
== END 2024-11-14 13:33 | disposition home or self-care (01) ==
LOC: ANHCSM 08:34
PROVIDERS: PCP Family Medicine; Visit Provider Nurse Practitioner Family
DX: G47.33 Obstructive sleep apnea (adult) (pediatric) (principal); G47.31 Primary central sleep apnea; R40.0 Somnolence
CPT/HCPCS: 95800

== ENCOUNTER 2024-12-11 07:49 | Outpatient (CLI) | payer OTHER, SELFPAY ==
--- NOTE | 2024-12-27 09:22 | WPDSLEEPSTUD ---
Sleep Study Date of Study: 12/11/24 Ordering Provider: Chen Finley MD Interpreting Physician: Sofia Bunch MD Sleep Study Type: CPAP Titration Height: 1.65 m Weight: 131.088 kg Body Mass Index: 48.1 Neck Circumference (inches): 15.5 Gracey: 11 Reason for Sleep Study * 11/13/2024 Home sleep test using WatchPat; extremely severe obstructive sleep apnea, AHI 81.3, central apnea index 5.2, Denny-Lopez respirationgreater than expected for mild central apnea Patient presents for a CPAP titration Sleep History This history is from her November 13 sleep survey. She had a home sleep test on 11/13/24 showing extremely severe obstructive sleep apnea, mild central apnea and moderate Cheyn=Lopez respirations. She has used an oximeter at home, has found that her saturation is 88% at times while sleeping, with an alarm that wakes her when this happens. She has a medical comorbidity of hypertension. She has loud snoring and witnessed apneas. She has difficulty breathing when she sleeps on her back. She has morning headaches. When she awakens she has a sore throat and a dry mouth. She has nocturnal heartburn and wakes more than 3 times at night to urinate. She has difficulty falling asleep and staying asleep. 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 She does not take any medications to get to sleep. She does not have anxiety about her sleep issues. She does clench and grind her teeth during sleep. She has excessive leg kicking during sleep and restless feelings in her legs before sleep. She has non restorative sleep wakes up feeling tired and she is sleepy during the day. She has a urge to fall asleep during the day however does not have the urge to fall asleep while driving. She does have an urge to move her legs which is worse when she is resting. It gets better with activity. This issue occurs in the evening or night time. This does give her concern and it interferes with her ability to sleep easily. She has difficulty falling asleep at the desired bedtime Her usual bedtime is 11:00 p.m. taking an hour to fall asleep, spending 10 hours in bed but only 4 hours sleeping. This is the same schedule on her days off. Habits: Tobacco: former smoker, quit in 2021 Caffeine: 3-4 cups daily Alcohol: no Recreational substances: no PMFSH Past Medical History Medical History Aortic stenosis, moderate OAB (overactive bladder) Type 2 diabetes mellitus with stage 4 chronic kidney disease GFR 15-29 CKD (chronic kidney disease) stage 4, GFR 15-29 ml/min Anxiety Type 2 diabetes mellitus without complications Arthritis of knee Cholelithiasis 06/2009 GERD without esophagitis Dyslipidemia Unspecified osteoarthritis, unspecified site Essential (primary) hypertension Surgical History Surgical History Hx of neck surgery (Unknown) Salivary gland removal Hx of tubal ligation (~1986) History of arthroplasty of both knees Left total - 02/10/2016 Right total - 12/29/2015 History of cholecystectomy 04/26/2013 Family History Family History Father Hypertension Family history of gastrointestinal disorder Family history of chronic obstructive pulmonary disease Malignant neoplasm of prostate Family history of diabetes mellitus in first degree relative Mother Hypertension Other Aneurysm Atrial myxoma Cerebrovascular accident Diabetes mellitus Family history of arthritis Family history of gout Family history of heart disease in male family member before age 55 Family history of primary malignant neoplasm of liver Social History Social History Social History: Caffeine- daily Smoking packs per day: 1 Smoking cigarettes per day: 20.0 Years smoked: 20 Smoking pack-years: 20.00 Smoking status: Former smoker Tobacco type: cigarettes Second hand tobacco smoke exposure: Yes Smoking end date: 07/26/22 Additional smoking assessment comments: vapes occassionally Alcohol intake: never Substance use: never Substance use type: does not use Do You Feel Safe in your Home?: Yes Lack of Transportation: No Lack of Food: Never True Current Housing: I Have Housing Concerned About Future Housing: No Difficulty Paying Gas/Electric Bills: No Difficulty Paying for Meds: No Currently Unemployed: No Education: Trade/Vocational Certificate Difficulty w/ Childcare or Family Care: No Living arrangements: with family Occupation/Education: occupation 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- [employer] Spiritual care concerns: No Medications Home Medications ?Medication ?Instructions ?Recorded ?Confirmed ?Type aspirin 81 mg tablet,delayed 81 mg PO DAILY 09/18/19 10/18/24 History release (Adult Low Dose Aspirin) Continuous glucose monitor #1 ea 05/03/24 10/18/24 Rx cholecalciferol (vitamin D3) 125 125 mcg PO DAILY 05/28/24 10/18/24 History mcg (5,000 unit) tablet (Vitamin D3) atorvastatin 10 mg tablet 10 mg PO QHS #90 tabs 06/26/24 10/18/24 Rx lisinopril 20 1 tablet PO .every morning #90 tabs 07/15/24 10/18/24 Rx mg-hydrochlorothiazide 12.5 mg tablet lisinopril 20 mg tablet 20 mg PO .evening #90 tabs 07/26/24 10/18/24 Rx metformin 500 mg tablet,extended 1,000 mg (2 x 500 mg) PO BID #360 10/18/24 10/18/24 Rx release 24 hr tabs omeprazole 20 mg capsule,delayed 20 mg PO DAILY #90 caps 10/18/24 10/18/24 Rx release blood-glucose sensor (Dexcom G7 #1 ea 10/29/24 Rx Sensor device) blood-glucose,fermenting cellars receiver,cont #1 ea 10/29/24 Rx (Dexcom G7 Breaker Mechanic) levofloxacin 750 mg tablet 750 mg PO DAILY #5 tabs 11/01/24 Rx prednisone 20 mg tablet 40 mg (2 x 20 mg) PO DAILY 3 days 11/01/24 Rx #6 tabs escitalopram oxalate 10 mg tablet 10 mg PO DAILY #30 tabs 11/13/24 Rx (Lexapro) gabapentin 300 mg capsule See Rx Instructions .Route 11/25/24 Rx .COMPLEX #270 caps glipizide 10 mg tablet, extended See Rx Instructions .Route 12/09/24 Rx release 24 hr .COMPLEX #90 tabs dulaglutide 3 mg/0.5 mL See Rx Instructions .Route 12/23/24 Rx subcutaneous pen injector .COMPLEX #4 mL (Trulicity) Sleep Procedure A full CPAP polysomnogram using the [employer] SleepGeoSentric multi-channel system recorded the standard physiologic parameters including EEG, EOG, submentalis EMG, anterior tibialis EMG, EKG, body position, nasal and oral airflow using nasal pressure sensor and thermistor. Respiratory parameters of chest and abdominal movements were recorded with Respiratory Inductance Plethysmography belts. Oxygen saturation was recorded by pulse oximetry. Video monitoring was also performed. Sleep stages, periodic limb movements, and EEG arousals were scored in 30 second epochs according to the criteria of the AASM Scoring Manual. The Apnea-Hypopnea Index was calculated using [facility] guidelines for definition of hypopnea while scoring respiratory events. The patient was started on CPAP using a medium ResMed AirFit F20 fullface mask with heated humidity, initial pressure was CPAP 9 cm titrated in increments of 2 cm up to a maximum CPAP 17 cm. At this pressure the patient spent 109.5 minutes in bed, 15 minutes awake, 65 minutes in non-REM and 29.5 minute in REM. The sleep efficiency was 86.3%. The residual apnea-hypopnea index was 2.5. Mean saturation was 94%. This was the optimal pressure. She had dense supine REM at this setting. Sleep Architecture The total recording time was 491.9 minutes. The total sleep time was 359.5 minutes. Sleep latency was 38.9 minutes. REM latency was 135.5 minutes. Sleep efficiency was 73.1%. The patient had 35 awakenings for an awakening index of 5.8. Wake after Sleep Onset time was 93.0 minutes. The patient spent 37.0 minutes, 10.3% of total sleep time in Stage N1. The patient spent 220.5 minutes, 61.3% in Stage N2. The patient spent 32.0 minutes, 8.9% in Stage N3. The patient spent 70.0 minutes, 19.5% in Stage REM. Respiratory Analysis The patient had 42 hypopneas, 1 obstructive apneas, no mixed apneas, and 3 central apneas for an overall Apnea Hypopnea Index of 7.3 events per hour. The REM Apnea Hypopnea Index was 7.7. The NREM Apnea Hypopnea Index was 7.3. The patient had a Central Apnea Hypopnea Index of 0.5. There were no Respiratory Effort Related Arousals. The Respiratory Disturbance Index is 8.0 events per hour. There was no evidence of Denny-Lopez Respirations. Arousals There were 65 total arousals for an arousal index of 10.8. There were 31 spontaneous arousals for an index of 5.2. There were 7 arousals due to respiratory events for an index of 1.2. There were 22 arousals due to periodic limb movements for an index of 3.7. There were 5 arousals due to isolated limb movements for an index of 0.8. Periodic Limb Movements The patient had 31 isolated limb movements with an index of 5.2. The patient had 478 periodic limb movements with index of 79.8. Patient had a total of 509 limb movements with a total limb movement index of 85.0. Oximetry Data The patient had an average oxygen saturation of 93.4% in sleep with a minimum oxygen saturation of 74% and a maximum oxygen saturation of 98%. The patient had 49 oxygen desaturations that were 4% or greater resulting in an Oxygen Desaturation Index of 8.2. The patient spent 12.7 minutes, 2.7% of total sleep time with an oxygen saturation below 88%. Snoring Profile Snoring was eliminated during the titration. Cardiac Profile The EKG showed normal sinus rhythm. The patient had an average pulse rate of 80.3 bpm with a minimum pulse rate of 69 bpm and a maximum pulse rate of 96 bpm. No arrhythmias noted. EEG Profile EEG was unremarkable, no evidence of seizures. Assessment and Plan Assessment and Plan (1) Obstructive sleep apnea: Code(s): G47.33 - Obstructive sleep apnea (adult) (pediatric) Status: Acute Assessment and Plan: This full night CPAP titration on 12/11/2024 shows a successful procedure with an optimal pressure CPAP 17 cm using a medium ResMed AirFit F20 fullface mask and heated humidity. At this pressure the patient spent 109.5 minutes in bed, 15 minutes awake, 65 minutes in non-REM and 29.5 minute in REM. The sleep efficiency was 86.3%. The residual apnea-hypopnea index was 2.5. Mean saturation was 94%. This was the optimal pressure. She had dense supine REM. The patient did not have significant central apneas. No Denny-Lopez respirations occurred. These problems have resolved. The patient should be prescribed this ResMed equipment as well as tubing, filters and reservoir. This should be used with all episodes of sleep. Compliance should be reviewed within 31-90 days of starting therapy for usage greater than 4 hours per night greater than 70% of the nights. The patient should be asked about symptoms such as excessive daytime sleepiness, quality of sleep, decreased nocturia, increased mental functioning such as memory, mood, and concentration. BMI is 48. Weight management is advised. Clinical data suggests that weight loss of 10% can reduce the severity of respiratory events and snoring and improve AHI by as much as 25%. (2) Restless legs syndrome (RLS): Code(s): G25.81 - Restless legs syndrome Status: Acute Assessment and Plan: Her sleep survey indicates that she has excessive kicking at night and uncomfortable feelings in her legs before going to sleep. On this CPAP titration, she did not have leg movements associated with arousals. She did have excessive leg movements with periodic leg movement index of 79.8. It is possible that these leg movements may improve using CPAP therapy. Regarding the uncomfortable feelings in her legs before sleep, this is consistent with restless legs syndrome. She has diabetes which is a predisposing factor for RLS. Ferritin level is indicated to exclude iron deficiency anemia as a contributing factor. Ferritin should be 75 ng/mL or greater. If ferritin is below this, iron supplementation should be given to achieve ferritin of 75 ng/mL. There are nonpharmacologic methods to treat limb movements including daily exercise, stretching calf muscles before bed, avoiding excessive amounts of caffeine and alcohol, vitamin B supplementation, magnesium lotion massaged into legs before bed, and use of a weighted blanket. Pharmacologic therapy is very effective for restless legs syndrome and limb movements during sleep and may include [id number] voltage-gated calcium channel ligands such as gabapentin which is preferable to dopaminergic agents which can have augmentation. Other treatments can include opioids and benzodiazepines. Data The data obtained during this sleep study is adequate for interpretation. Certification This sleep study has been reviewed by a board certified sleep medicine physician.
[2024-12-27 09:28] VITALS: BMI 48.1
== END 2024-12-12 06:15 | disposition home or self-care (01) ==
LOC: ANHCSM 07:51
PROVIDERS: PCP Family Medicine; Visit Provider Family Medicine
DX: G47.33 Obstructive sleep apnea (adult) (pediatric) (principal); G25.81 Restless legs syndrome
CPT/HCPCS: 95811

== ENCOUNTER 2024-12-13 09:55 | Outpatient (CLI) | payer OTHER, SELFPAY ==
--- NOTE | 2024-12-13 10:08 | ECHO_ITS ---
Patient Info Name: Nohelia Hardy Age: 59 years : 1965 Gender: Female Ht: 65 in Wt: 279 lbs BSA: 2.48 m2 HR: 81 bpm BP: 135 / 97 mmHg Technical Quality: Good Exam Date: 12/13/2024 10:13 AM Exam Location: Echo Lab Patient Status: Outpatient Admit Date: 12/13/2024 Staff Ordering Physician: Fran Finley MD Blanking Machine Operator: Charlotte Leo RDCS Attending Provider: Fran Finley MD Exam Type: CA echo doppler color flow Study Info Indications G47.31 - Primary central sleep apnea Complete two-dimensional, color flow and Doppler transthoracic echocardiogram is performed. Summary 1. Complete two-dimensional, color flow and Doppler transthoracic echocardiogram is performed. 2. Left ventricular chamber dimension is normal. 3. Left ventricular systolic function is normal, estimated at 60-65%. 4. There is mild concentric increased left ventricular wall thickness. 5. The left ventricular diastolic function is grade I diastolic dysfunction. 6. E/e' 6 is not elevated. 7. There is moderate aortic valve sclerosis. 8. There is moderate aortic valve stenosis with a peak velocity of 260 cm/s, mean gradient of 15 mmHg, and aortic valve area of 1.0 cm2. 9. The mitral valve has mildly calcified annulus. 10. There is mild tricuspid valve regurgitation. 11. No pulmonary hypertension, estimated pulmonary arterial systolic pressure is 22 mmHg. Left Ventricle E/e' 6 is not elevated. Left ventricular chamber dimension is normal. Left ventricular systolic function is normal, estimated at 60-65%. There is mild concentric increased left ventricular wall thickness. The left ventricular diastolic function is grade I diastolic dysfunction. Right Ventricle Right ventricular systolic function is normal and with normal TAPSE 1.9 cm. Right ventricular chamber dimension is normal. Left Atria Left atrial chamber dimension is normal. Right Atria Right atrial chamber dimension is normal. Aortic Valve The aortic valve is trileaflet. There is moderate aortic valve sclerosis. There is moderate aortic valve stenosis with a peak velocity of 260 cm/s, mean gradient of 15 mmHg, and aortic valve area of 1.0 cm2. There is no aortic valve regurgitation. Pulmonic Valve There is no pulmonic regurgitation. Mitral Valve The mitral valve has mildly calcified annulus. There is no mitral valve stenosis. There is no mitral valve regurgitation. Tricuspid Valve There is mild tricuspid valve regurgitation. No pulmonary hypertension, estimated pulmonary arterial systolic pressure is 22 mmHg. Pericardium/Pleural There is no pericardial effusion. Inferior Vena Cava Normal inferior vena cava with >50% collapse upon inspiration consistent with normal right atrial pressure, 5 mmHg. Aorta The aortic root size at the sinus of Valsalva is normal. Left Ventricular Outflow Tract Name Value Normal LVOT 2D LVOT Diameter 1.9 cm LVOT Doppler LVOT Peak Gradient 4 mmHg LVOT Mean Gradient 2 mmHg LVOT VTI 18 cm LVOT VTI/AV VTI Ratio 0.4 LVOT Stroke Volume 48 ml LVOT CO 10.9 l/min LVOT CI 4.4 l/min/m2 Mitral Valve Name Value Normal MV Doppler MV Decel [place] 228 cm/s2 MV PHT 96 ms MV Area (PHT) 2.3 cm2 4.0-5.0 MV Diastolic Function MV E Peak Velocity 75 cm/s MV A Peak Velocity 88 cm/s MV E/A 0.9 MV Decel Time 330 ms MV Annular TDI MV E/e' (Septal) 6.3 <=8.0 MV E/e' (Lateral) 6.7 <=8.0 MV E/e' (Average) 6.5 Tricuspid Valve Name Value Normal TV Regurgitation Doppler TR Peak Velocity 208 cm/s TR Peak Gradient 17 mmHg Estimated PAP/RSVP RA Pressure 5 mmHg <=5 PA Systolic Pressure 22 mmHg <36 RV Systolic Pressure 22 mmHg <36 Aorta Name Value Normal Ascending Aorta Ao Root Diameter (MM) 3.1 cm Ao Root Diam Index (MM) 1.3 cm/m2 Aortic Valve Name Value Normal AV Doppler AV Peak Velocity 260 cm/s AV Peak Gradient 27 mmHg AV Mean Gradient 15 mmHg AV VTI 47 cm AV Area (Cont Eq VTI) 1.0 cm2 >=3.0 AV Area (Cont Eq Denys) 1.0 cm2 AV Regurgitation 2D LVOT Area 2.7 cm2 Ventricles Name Value Normal LV Dimensions 2D/MM IVS Diastolic Thickness (2D) 1.2 cm 0.6-1.0 LVID Diastole (2D) 4.3 cm 3.8-5.2 LVIW Diastolic Thickness (2D) 1.2 cm 0.6-0.9 LVID Systole (2D) 2.7 cm 2.2-3.5 LVOT Diameter 1.9 cm LV Mass (2D Cubed) 181.03 g 67.00-162.00 LV Mass Index (2D Cubed) 73 g/m2 43-95 Relative Wall Thickness (2D) 0.56 LV Fractional Shortening/Ejection Fraction 2D/MM LV Fractional Shortening (2D) 37 % 27-45 LV EF (2D Teicholz) 67 % 54-74 LV Diastolic Volume (4C MOD) 68 ml LV EF (4C MOD) 59 % LV Diastolic Volume (2C MOD) 77 ml LV EF (2C MOD) 62 % LV Diastolic Volume (BP MOD) 74 ml 46-106 LV Diastolic Volume Index (BP MOD) 30 ml/m2 29-61 LV Systolic Volume (BP MOD) 28 ml 14-42 LV Systolic Volume Index (BP MOD) 11 ml/m2 8-24 LV EF (BP MOD) 62 % 54-74 LV Diastolic Length (4C) 7.0 cm LV Systolic Length (4C) 5.6 cm LV Stroke Volume (4C MOD) 41 ml RV Dimensions 2D/MM RVID Diastole (2D) 3.2 cm 2.5-3.5 Atria Name Value Normal LA Dimensions LA Dimension (MM) 3.5 cm 2.7-3.8 LA Volume (4C A-L) 35 ml LA Volume (BP A-L) 42 ml RA Dimensions RA Area (4C) 12.4 cm2 <=18.0 Report Signatures
== END 2024-12-13 09:56 | disposition home or self-care (01) ==
PROVIDERS: PCP Family Medicine; Visit Provider Family Medicine
DX: G47.31 Primary central sleep apnea (principal); I10 Essential (primary) hypertension; I36.1 Nonrheumatic tricuspid (valve) insufficiency
CPT/HCPCS: 93306